=== PATIENT | male | born 1965 | race Caucasian/White ===

== ENCOUNTER 2019-11-05 13:45 | Inpatient (IN) | payer OTHER ==
--- NOTE | 2019-11-05 14:05 | PDOC ---
History of Present Illness - General Stated Complaint: CHEST PAIN/SOB Time Seen by Provider: 11/05/19 13:59 - History of Present Illness Initial Comments: 11/05/19 14:48 54 year old man with no reported history who presents with several days of worsening shortness of breath and chest tightness. He endorses some cough, but denies any fevers, nausea, sweating, abdominal pain. He has no other complaints. On triage sats on RA in mid 70s. He only came to the ER on the insistence of his . ROS GENERAL/CONSTITUTIONAL: No fever or chills. No weakness. HEAD, EYES, EARS, NOSE AND THROAT: No change in vision. No ear pain or discharge. No sore throat. CARDIOVASCULAR: No chest pain, + shortness of breath RESPIRATORY: No cough, wheezing, or hemoptysis. GASTROINTESTINAL: No nausea, vomiting, diarrhea or constipation. GENITOURINARY: No dysuria, frequency, or change in urination. MUSCULOSKELETAL: No joint or muscle swelling or pain. No neck or back pain. SKIN: No rash NEUROLOGIC: No headache, vertigo, loss of consciousness, or change in strength/sensation. ENDOCRINE: No increased thirst. No abnormal weight change HEMATOLOGIC/LYMPHATIC: No anemia, easy bleeding, or history of blood clots. ALLERGIC/IMMUNOLOGIC: No hives or skin allergy. PE GENERAL: Awake, alert, and fully oriented, in no acute distress HEAD: No signs of trauma, normocephalic, atraumatic EYES: EOMI, sclera anicteric, conjunctiva clear ENT: oropharynx clear without exudates. Moist mucosa NECK: Normal ROM, supple LUNGS: No distress, speaks full sentences, clear to auscultation bilaterally HEART: Regular rate and rhythm, normal S1 and S2, no murmurs, rubs or gallops, peripheral pulses normal and equal bilaterally. ABDOMEN: Soft, nontender, No guarding, no rebound. No masses EXTREMITIES : Normal inspection, Normal range of motion, no edema. No clubbing or cyanosis. NEUROLOGICAL: Cranial nerves II through XII grossly intact. Normal speech, normal gait, no focal sensorimotor deficits SKIN: Warm, Dry, normal turgor, no rashes or lesions noted Assessment and Plan 54 year old man with no reported history who presents with several days of worsening shortness of breath and chest tightness. Concerning for covid vs pna vs pe r.o acs covid order set EKG: sinus tachycardia at 118bpm, S1Q3T3 pattern, no ST segment dep[place] [address] lactic 4.5 trop 0.4 CTA Acute emboli are identified within the left and right pulmonary arteries as well as straddling the bifurcation of the main pulmonary artery. Emboli are also visualized within several upper and lower lobe lobar branches. There is dilatation of the right ventricle consistent with evidence of right heart strain. No pericardial effusion is noted. Small peripheral right upper lobe and right lower lobe opacities are noted laterally probably on the basis of e yamilka/infarction. No pleural effusion is visualized. There is no obvious acute osseous pathology. Verbal report provided to emergency department personnel. Impression: Acute bilateral central pulmonary embolism is noted with resultant right heart strain. Heparin bolus and drip given See attending discussion with IR, pt may recieve IR guided tPa Discussed case wit ICU resident Dr. Child, will come see pt ICU staff at bedside for evaluation, accept patient for ICU admission Dina Price, PGY2 Emergency Medicine Past History - Medical History Allergies/Adverse Reactions: Allergies Allergy/AdvReac Type Severity Reaction Status Date / Time No Known Allergies Allergy Verified 11/05/19 13:54 ED Treatment Course - LABORATORY CBC & Chemistry Diagram: 11/06/19 05:55 11/06/19 05:55 Discharge - Discharge Information Problems reviewed: Yes Clinical Impression/Diagnosis: Pulmonary embolism Qualifiers: Pulmonary embolism type: saddle Chronicity: acute Acute cor pulmonale presence: with acute cor pulmonale Qualified Code(s): I26.02 - Saddle embolus of pulmonary artery with acute cor pulmonale - Follow up/Referral - Patient Discharge Instructions - Post Discharge Activity
[2019-11-05 15:01] LABS: BASO % 0.3 % (0-2.0); EOS % 0.1 % (0-4.5); HEMOGLOBIN 14.7 GM/dL (11.7-16.9); LYMPH % 19.3 % (8-40); MCH 31.4 pg (25.7-33.7); MCHC 33.4 g/dl (32.0-35.9); MEAN CELL VOLUME 94.1 fl (80-96); MONO % 8.2 % (3.8-10.2); NEUT % 72.1 % (42.8-82.8); PLATELET COUNT 216 K/MM3 (134-434); RBC 4.67 M/mm3 (4.00-5.60); RDW 13.9 % (11.9-15.9); WHITE BLOOD COUNT 11.7 K/mm3 (4.0-10.0)
[2019-11-05 15:07] LABS: INR 1.28 (0.83-1.09); PROTHROMBIN TIME (PATIENT) 15.1 SEC (9.7-13.0)
[2019-11-05 15:09] LABS: ACTIVATED PTT 26.4 SECONDS (25.2-36.5)
[2019-11-05 15:20] LABS: ALBUMIN 3.8 g/dl (3.4-5.0); BILIRUBIN,DIRECT 0.4 mg/dL (0.0-0.2); BILIRUBIN,TOTAL 0.9 mg/dL (0.2-1); BLOOD UREA NITROGEN 24.4 mg/dL (7-18); CALCIUM 8.8 mg/dL (8.5-10.1); CREATININE 1.6 mg/dL (0.55-1.3); TOT PROT 8.5 g/dl (6.4-8.2)
--- NOTE | 2019-11-05 15:44 | PDOC ---
Attending Attestation - Resident Resident Name: Dina Price - ED Attending Attestation I have performed the following: I have examined & evaluated the patient, The case was reviewed & discussed with the resident, I agree w/resident's findings & plan, Exceptions are as noted - HPI HPI: 11/05/19 15:44 54 years old no past medical history presents to the ED with 3-day history of chest pressure and tightness and shortness of breath progressively worsening. No history of similar no travel no sick contacts Symptoms are moderate to severe persistent constant worsening over the last 3 days. 11/05/19 15:49 - Physicial Exam PE: 11/05/19 15:49 Vitals: Triage Vital signs reviewed General Appearance: No acute distress, well nourished well developed, Head: Atraumatic, Cardiac: Tachycardic Lungs: Clear to auscultation bilateral, good air movement bilaterally, Abdomen: Soft, non distended, normal bowel sounds, non tender to palpation \ Extremities: Full range of motion to all extremities, no cyanosis, clubbing, or edema Skin: Warm and dry, no rashes or lesions, no rash, no petechiae Psych: Normal mood, normal affect - Critical Care Time Total Critical Care Time: 45 Critical Care Statement: The care of this patient involved high complexity decision making to prevent further life threatening deterioration of the patient's condition and/or to evaluate & treat vital organ system(s) failure or risk of failure. - Medical Decision Making 11/05/19 15:44 54 years old no past medical history with 3-day history of chest pain shortness of breath Differential diagnosis includes COVID/pneumonia/non-STEMI/PE D-dimer 17,000 CTA ordered CTA demonstrates saddle PE however patient hemodynamically stable bedside ultrasound demonstrates right heart strain blood pressure and oxygen have improved Case discussed with interventional radiology as well as ICU will heparinize admit to ICU for further management Patient's creatinine 1.[address] with IV contrast Heart Score/ECG Review - ECG Impressions Comment:: 11/05/19 15:50 EKG performed at 1349 demonstrates sinus tachycardia [address] elevations no T wave inversions Interpreted by me. Discharge - Discharge Information Problems reviewed: Yes Clinical Impression/Diagnosis: Pulmonary embolism Qualifiers: Pulmonary embolism type: saddle Chronicity: acute Acute cor pulmonale presence: with acute cor pulmonale Qualified Code(s): I26.02 - Saddle embolus of pulmonary artery with acute cor pulmonale - Follow up/Referral - Patient Discharge Instructions - Post Discharge Activity
[2019-11-05] MEDS ORDERED: HEPARIN - 25,000 UNIT in SODIUM CHLORIDE 495 ML IV SCH (17:00)
[2019-11-05] MEDS ORDERED: HEPARIN NA (PORCINE) 5,000 UNITS/ML 1ML VIAL IVPUSH ONE (17:00)
[2019-11-05] MEDS ORDERED: HEPARIN NA (PORCINE) 5,000 UNITS/ML 1ML VIAL IVPUSH PRN ×5 (17:00→20:01)
[2019-11-05] MEDS ORDERED: HEPARIN INFUSION - 25,000 UNITS/500 ML INFUS.BAG IVPB ONE (17:14)
[2019-11-05] MEDS ORDERED: HEPARIN NA (PORCINE) 5,000 UNITS/ML 1ML VIAL ONE (17:14)
--- NOTE | 2019-11-05 18:23 | CONSULT ---
Consult Consult Specialty:: ICU Referred by:: ED - History of Present Illness Chief Complaint: SOB; submassive PE History of Present Illness: 54 y/o male with no reported PMH c/o 4 days of SOB and decreased appetite. He states this has never happened before. The symptoms occurred progressively. He denies PND and orhtopnea. He denies allergeies, h/o ashthma and COPD. The SOB is not exacerbated by activity. Denies GUTIERREZ, visions change, cough, CP, abdominal pain, joint pains, dyuria, hematuria, hematochezia, and bleeding. ROS NEG. - History Source History Provided By: Patient Limitations to Obtaining History: No Limitations - Past Medical History Cardio/Vascular: Yes: HTN - Alcohol/Substance Use Hx Alcohol Use: Yes (social ) History of Substance Use: reports: None - Smoking History Smoking history: Former smoker Have you smoked in the past 12 months: No - Social History Usual Living Arrangement: With Spouse ADL: Independent Place of : Other ([facility]) History of Recent Travel: No Home Medications - Allergies Allergies/Adverse Reactions: Allergies Allergy/AdvReac Type Severity Reaction Status Date / Time No Known Allergies Allergy Verified 11/05/19 13:54 Family Medical History Family History: Denies Other Family History: No family med hx. No fam h/o VTE or other blodd d/o. Review of Systems - Review of Systems Constitutional: reports: No Symptoms Eyes: reports: No Symptoms HENT: reports: No Symptoms Neck: reports: No Symptoms Cardiovascular: reports: Shortness of Breath Respiratory: reports: SOB Gastrointestinal: reports: No Symptoms Genitourinary: reports: No Symptoms Breasts: reports: No Symptoms Reported Musculoskeletal: reports: No Symptoms Integumentary: reports: No Symptoms Neurological: reports: No Symptoms Endocrine: reports: No Symptoms Hematology/Lymphatic: reports: No Symptoms Psychiatric: reports: No Symptoms Physical Exam Vital Signs: Vital Signs Temperature Pulse Rate 115 H 11/05/19 13:54 Respiratory Rate 11/05/19 13:54 Blood Pressure 119/81 11/05/19 13:54 O2 Sat by Pulse Oximetry (%) 85 L 11/05/19 15:42 Constitutional: Yes: Well Nourished, No Distress, Calm Eyes: Yes: WNL, Conjunctiva Clear, EOM Intact HENT: Yes: WNL, Atraumatic, Normocephalic Neck: Yes: WNL, Supple, Trachea Midline Cardiovascular: Yes: WNL, Regular Rate and Rhythm Respiratory: Yes: WNL, Regular, CTA Bilaterally, On Venti-Mask Gastrointestinal: Yes: WNL ...Rectal Exam: Yes: Deferred Breast(s): Yes: WNL Musculoskeletal: Yes: WNL Extremities: Yes: WNL Edema: No Peripheral Pulses WNL: Yes Integumentary: Yes: WNL Neurological: Yes: WNL ...Motor Strength: WNL Psychiatric: Yes: WNL Labs: CBC, BMP 11/05/19 14:26 11/05/19 14:26 Imaging - Results Chest X-ray: Report Reviewed Cat Scan: Report Reviewed (Submassive PE) EKG: Pending (s1q3t3) Assessment/Plan 54 y/o male with no reported PMH c/o SOB admitted for submassive PE. He is currently on PE protocol Heparin drip and is scheduled for IR guided thrombec jose david. # Neuro AOx3 No focal deficits # Pulm CT: Emboli in LEFT and RIGHT pulm artery, straddling bifurcation as well as upper and lower lobes branches WITH RIGHT heart strain Heparin protocol for PE # CVS Hemodynamically stable RRR EKG with s1q3t3 Heparin protocol for PE Unprovoked PE Scheduled for IR directed thrombectomy F/u protein C, protein S deficiency, Factor V Leiden # Renal Possible MIKE Cr 1.6 (1st time visit today) # FEN PO Cont. to monitor and replete as needed NPO after midnight # Ppx Currently receiving Hep protocol # Disposition Admit to ICU
[2019-11-05] MEDS: HEPARIN - 25,000 UNIT in SODIUM CHLORIDE 495 ML IV SCH (20:10)
[2019-11-05] MEDS: CHLORHEXIDINE GLUCONATE 4% CLEANSER FOR DECOLONIZATION TP SCH (21:12)
[2019-11-05] MEDS: MUPIROCIN 2% TOPICAL OINTMENT FOR DECOLONIZATION NS SCH (21:33)
[2019-11-05] MEDS ORDERED: CHLORHEXIDINE GLUCONATE 4% CLEANSER FOR DECOLONIZATION TP SCH (22:00)
[2019-11-05] MEDS ORDERED: MUPIROCIN 2% TOPICAL OINTMENT FOR DECOLONIZATION NS SCH (22:00)
[2019-11-06 06:19] LABS: BASO % 0.5 % (0-2.0); EOS % 0.7 % (0-4.5); HEMATOCRIT 39.3 % (35.4-49); HEMOGLOBIN 13.3 GM/dL (11.7-16.9); LYMPH % 31.3 % (8-40); MCH 31.5 pg (25.7-33.7); MCHC 33.8 g/dl (32.0-35.9); MEAN PLT VOLUME 8.8 fl (7.5-11.1); MONO % 9.4 % (3.8-10.2); NEUT % 58.1 % (42.8-82.8); PLATELET COUNT 145 K/MM3 (134-434); RBC 4.23 M/mm3 (4.00-5.60); RDW 13.8 % (11.9-15.9); WHITE BLOOD COUNT 7.6 K/mm3 (4.0-10.0)
[2019-11-06 06:49] LABS: ALBUMIN 3.4 g/dl (3.4-5.0); BILIRUBIN,TOTAL 0.7 mg/dL (0.2-1); BLOOD UREA NITROGEN 22.9 mg/dL (7-18); CALCIUM 8.4 mg/dL (8.5-10.1); CREATININE 1.2 mg/dL (0.55-1.3); MAGNESIUM 2.4 mg/dL (1.8-2.4); PHOSPHOROUS 4.3 mg/dL (2.5-4.9); TOT PROT 7.4 g/dl (6.4-8.2)
[2019-11-06] MEDS: HEPARIN - 25,000 UNIT in SODIUM CHLORIDE 495 ML IV SCH (09:28)
[2019-11-06] MEDS: MUPIROCIN 2% TOPICAL OINTMENT FOR DECOLONIZATION NS SCH ×2 (10:09→22:16)
--- NOTE | 2019-11-06 11:17 | EKG ---
Test Reason : Blood Pressure : / mmHG Vent. Rate : 118 BPM Atrial Rate : 118 BPM P-R Int : 156 ms QRS Dur : 088 ms QT Int : 342 ms P-R-T Axes : 074 065 033 degrees QTc Int : 479 ms SINUS TACHYCARDIA OTHERWISE NORMAL ECG NO PREVIOUS ECGS AVAILABLE Confirmed by MD EFREN, JULISSA ([id number]) on 11/06/2019 11:17:39 AM Referred By: Confirmed By:JULISSA SCHWARTZ MD
--- NOTE | 2019-11-06 12:27 | PN ---
Teaching Attending Note Name of Resident: Malcolm Platt ATTENDING PHYSICIAN STATEMENT I saw and evaluated the patient. I reviewed the resident's note and discussed the case with the resident. I agree with the resident's findings and plan as documented. SUBJECTIVE: Patient seen and examined in the ICU. On 100% NRBM. Denies CP or SOB. CT : extensive bilateral PE ? radiographic evidence of RH strain. VTE seems unprovoked. Low clinical suspicion of COVID19. Intake & Output 11/03/19 11/04/19 11/05/19 11/06/19 23:59 23:59 23:59 23:59 Intake Total 117 324 Output Total 300 Balance 117 24 Weight 238 lb 14.4 oz 238 lb 14.4 oz Last Vital Signs Temp Pulse Resp BP Pulse Ox 98.7 F 83 20 129/89 95 11/06/19 10:00 11/06/19 10:00 11/06/19 10:00 11/06/19 10:00 11/06/19 08:49 Active Medications Chlorhexidine Gluconate (Hibiclens For Decolonization -) 1 applic TP HS CHERI Last Admin: 11/05/19 21:12 Dose: 1 applic Documented by: Heparin Sodium (Porcine) (Heparin -) 4,300 unit 40 unit/kg (4300 unit) IVPUSH PRN PRN PRN Reason: For aPTT 35 to 45 seconds Heparin Sodium (Porcine) (Heparin -) 8,700 unit 80 unit/kg (8700 unit) IVPUSH PRN PRN PRN Reason: aPTT <35 seconds Heparin Sodium (Porcine) 25, (000 unit/ Sodium Chloride) 500 mls @ 39.027 mls/hr IV TITR CHERI; Protocol Last Titration: 11/06/19 10:09 Dose: 15 unit/kg/hr, 32.523 mls/hr Documented by: Mupirocin (Bactroban Ointment (For Decolonization) -) 1 applic NS BID CHERI Stop: 11/10/19 21:59 Last Admin: 11/06/19 10:09 Dose: 1 applic Documented by: Constitutional: Yes: Well Nourished, No Distress Eyes: Yes: WNL, Conjunctiva Clear, EOM Intact HENT: Yes: WNL, Atraumatic, Normocephalic Neck: Yes: WNL, Supple, Trachea Midline Cardiovascular: Yes: WNL, Regular Rate and Rhythm Respiratory: Yes: Mildly tachypneic at rest, diminished throughout Gastrointestinal: Yes: WNL ...Rectal Exam: Yes: Deferred Breast(s): Yes: WNL Musculoskeletal: Yes: WNL Extremities: Yes: WNL Edema: No Peripheral Pulses WNL: Yes Integumentary: Yes: WNL Neurological: Yes: WNL ...Motor Strength: WNL Psychiatric: Yes: WNL Labs: Laboratory Results - last 24 hr 11/05/19 11/05/19 11/05/19 14:26 14:26 14:26 WBC 11.7 H RBC 4.67 Hgb 14.7 Hct 44.0 MCV 94.1 MCH 31.4 MCHC 33.4 RDW 13.9 Plt Count 216 MPV 9.0 Absolute Neuts (auto) 8.4 H Neutrophils % 72.1 Lymphocytes % 19.3 Monocytes % 8.2 Eosinophils % 0.1 Basophils % 0.3 Nucleated RBC % 0 PT with INR 15.10 H INR 1.28 H PTT (Actin FS) 26.4 D-Dimer 02184 H Sodium Potassium Chloride Carbon Dioxide Anion Gap BUN Creatinine Est GFR (CKD-EPI)AfAm Est GFR (CKD-EPI)NonAf Random Glucose Lactic Acid Calcium Phosphorus Magnesium Ferritin Total Bilirubin Direct Bilirubin AST ALT Alkaline Phosphatase LD Total Creatine Kinase Creatine Kinase Index CK-MB (CK-2) Troponin I B-Natriuretic Peptide Total Protein Albumin Stool Occult Blood 11/05/19 11/05/19 11/05/19 14:26 14:26 14:26 WBC RBC Hgb Hct MCV MCH MCHC RDW Plt Count MPV Absolute Neuts (auto) Neutrophils % Lymphocytes % Monocytes % Eosinophils % Basophils % Nucleated RBC % PT with INR INR PTT (Actin FS) D-Dimer Sodium 136 Potassium 4.0 Chloride 101 Carbon Dioxide 18 L Anion Gap 17 H BUN 24.4 H Creatinine 1.6 H Est GFR (CKD-EPI)AfAm 55.39 Est GFR (CKD-EPI)NonAf 47.79 Random Glucose 164 H Lactic Acid 4.5 H* Calcium 8.8 Phosphorus Magnesium Ferritin 238.0 Total Bilirubin 0.9 Direct Bilirubin 0.4 H AST 23 ALT 32 Alkaline Phosphatase 45 LD Total 375 H Creatine Kinase 216 Creatine Kinase Index 1.1 CK-MB (CK-2) 2.4 Troponin I 0.71 H* B-Natriuretic Peptide 5565.3 H Total Protein 8.5 H Albumin 3.8 Stool Occult Blood 11/05/19 11/05/19 11/05/19 17:11 18:00 18:00 WBC RBC Hgb Hct MCV MCH MCHC RDW Plt Count MPV Absolute Neuts (auto) Neutrophils % Lymphocytes % Monocytes % Eosinophils % Basophils % Nucleated RBC % PT with INR INR PTT (Actin FS) D-Dimer Sodium Potassium Chloride Carbon Dioxide Anion Gap BUN Creatinine Est GFR (CKD-EPI)AfAm Est GFR (CKD-EPI)NonAf Random Glucose Lactic Acid 1.9 Calcium Phosphorus Magnesium Ferritin Total Bilirubin Direct Bilirubin AST ALT Alkaline Phosphatase LD Total Creatine Kinase Creatine Kinase Index CK-MB (CK-2) Troponin I 0.68 H* B-Natriuretic Peptide Total Protein Albumin Stool Occult Blood Negative 11/05/19 11/05/19 11/05/19 20:50 20:50 20:50 WBC RBC Hgb Hct MCV MCH MCHC RDW Plt Count MPV Absolute Neuts (auto) Neutrophils % Lymphocytes % Monocytes % Eosinophils % Basophils % Nucleated RBC % PT with INR INR PTT (Actin FS) 99.9 H D-Dimer Sodium Potassium Chloride Carbon Dioxide Anion Gap BUN Creatinine Est GFR (CKD-EPI)AfAm Est GFR (CKD-EPI)NonAf Random Glucose Lactic Acid 1.4 Calcium Phosphorus Magnesium Ferritin Total Bilirubin Direct Bilirubin AST ALT Alkaline Phosphatase LD Total Creatine Kinase 268 Creatine Kinase Index 0.6 CK-MB (CK-2) 1.75 Troponin I 0.55 H B-Natriuretic Peptide Total Protein Albumin Stool Occult Blood 11/06/19 11/06/19 11/06/19 05:55 05:55 05:55 WBC 7.6 RBC 4.23 Hgb 13.3 Hct 39.3 MCV 93.0 MCH 31.5 MCHC 33.8 RDW 13.8 Plt Count 145 D MPV 8.8 Absolute Neuts (auto) 4.4 Neutrophils % 58.1 Lymphocytes % 31.3 D Monocytes % 9.4 Eosinophils % 0.7 D Basophils % 0.5 Nucleated RBC % 0 PT with INR INR PTT (Actin FS) D-Dimer Sodium 138 Potassium 4.0 Chloride 104 Carbon Dioxide 24 Anion Gap 10 BUN 22.9 H Creatinine 1.2 Est GFR (CKD-EPI)AfAm 78.43 Est GFR (CKD-EPI)NonAf 67.67 Random Glucose 118 H Lactic Acid Calcium 8.4 L Phosphorus 4.3 Magnesium 2.4 Ferritin Total Bilirubin 0.7 Direct Bilirubin AST 26 ALT 32 Alkaline Phosphatase 40 L LD Total Creatine Kinase 251 Creatine Kinase Index 0.7 CK-MB (CK-2) 1.9 Troponin I 0.42 H B-Natriuretic Peptide Total Protein 7.4 Albumin 3.4 Stool Occult Blood 11/06/19 11/06/19 05:55 08:40 WBC RBC Hgb Hct MCV MCH MCHC RDW Plt Count MPV Absolute Neuts (auto) Neutrophils % Lymphocytes % Monocytes % Eosinophils % Basophils % Nucleated RBC % PT with INR INR PTT (Actin FS) 50.4 H D-Dimer Sodium Potassium Chloride Carbon Dioxide Anion Gap BUN Creatinine Est GFR (CKD-EPI)AfAm Est GFR (CKD-EPI)NonAf Random Glucose Lactic Acid Calcium Phosphorus Magnesium Ferritin Total Bilirubin Direct Bilirubin AST ALT Alkaline Phosphatase LD Total Creatine Kinase Creatine Kinase Index CK-MB (CK-2) Troponin I 0.42 H B-Natriuretic Peptide Total Protein Albumin Stool Occult Blood Imaging - Results Chest X-ray: Report Reviewed Cat Scan: Report Reviewed (Submassive PE) EKG: Pending (s1q3t3) Assessment/Plan Extensive Bilateral PE : seems unprovoked R/O DVT Low clinical suspicion of COVID19 infection ECHO Supplemental O2 as needed Will need Thrombosis workup Will need age appropriate malignancy screening Heparin per protocol Scheduled for IR directed thrombectomy & tPA infusion Continue ICU monitoring Dr Sebastian
--- NOTE | 2019-11-06 14:14 | PN ---
Physical Exam: SUBJECTIVE: Patient seen and examined. Afebrile, asymptomatic. On heparin drip. On Venti mask. OBB. NPO. OBJECTIVE: Vital Signs Period Temp Pulse Resp BP Sys/Dowd Pulse Ox Last 24 Hr 98 F-98.7 F 78-115 16-24 111-133/81-101 85-97 GENERAL: The patient is awake, alert, and fully oriented, in no acute distress. On venti mask EYES: PERRL, extraocular movements intact, sclera anicteric, conjunctiva clear. No ptosis. ENT: moist mucous membranes. NECK: Trachea midline, full range of motion, supple. LUNGS: diminished breath b/l HEART: Regular rate and rhythm, S1, S2 without murmur, rub or gallop. ABDOMEN: Soft, nontender, nondistended, normoactive bowel sounds, no guarding EXTREMITIES: 2+ pulses, warm, well-perfused, no edema. PSYCH: Normal mood, normal affect. SKIN: Warm, dry, normal turgor, no rashes or lesions noted Laboratory Results - last 24 hr 11/05/19 11/05/19 11/05/19 14:26 14:26 14:26 WBC 11.7 H RBC 4.67 Hgb 14.7 Hct 44.0 MCV 94.1 MCH 31.4 MCHC 33.4 RDW 13.9 Plt Count 216 MPV 9.0 Absolute Neuts (auto) 8.4 H Neutrophils % 72.1 Lymphocytes % 19.3 Monocytes % 8.2 Eosinophils % 0.1 Basophils % 0.3 Nucleated RBC % 0 PT with INR 15.10 H INR 1.28 H PTT (Actin FS) 26.4 D-Dimer 75648 H Sodium Potassium Chloride Carbon Dioxide Anion Gap BUN Creatinine Est GFR (CKD-EPI)AfAm Est GFR (CKD-EPI)NonAf Random Glucose Lactic Acid Calcium Phosphorus Magnesium Ferritin Total Bilirubin Direct Bilirubin AST ALT Alkaline Phosphatase LD Total Creatine Kinase Creatine Kinase Index CK-MB (CK-2) Troponin I B-Natriuretic Peptide Total Protein Albumin Stool Occult Blood 11/05/19 11/05/19 11/05/19 14:26 14:26 14:26 WBC RBC Hgb Hct MCV MCH MCHC RDW Plt Count MPV Absolute Neuts (auto) Neutrophils % Lymphocytes % Monocytes % Eosinophils % Basophils % Nucleated RBC % PT with INR INR PTT (Actin FS) D-Dimer Sodium 136 Potassium 4.0 Chloride 101 Carbon Dioxide 18 L Anion Gap 17 H BUN 24.4 H Creatinine 1.6 H Est GFR (CKD-EPI)AfAm 55.39 Est GFR (CKD-EPI)NonAf 47.79 Random Glucose 164 H Lactic Acid 4.5 H* Calcium 8.8 Phosphorus Magnesium Ferritin 238.0 Total Bilirubin 0.9 Direct Bilirubin 0.4 H AST 23 ALT 32 Alkaline Phosphatase 45 LD Total 375 H Creatine Kinase 216 Creatine Kinase Index 1.1 CK-MB (CK-2) 2.4 Troponin I 0.71 H* B-Natriuretic Peptide 5565.3 H Total Protein 8.5 H Albumin 3.8 Stool Occult Blood 11/05/19 11/05/19 11/05/19 17:11 18:00 18:00 WBC RBC Hgb Hct MCV MCH MCHC RDW Plt Count MPV Absolute Neuts (auto) Neutrophils % Lymphocytes % Monocytes % Eosinophils % Basophils % Nucleated RBC % PT with INR INR PTT (Actin FS) D-Dimer Sodium Potassium Chloride Carbon Dioxide Anion Gap BUN Creatinine Est GFR (CKD-EPI)AfAm Est GFR (CKD-EPI)NonAf Random Glucose Lactic Acid 1.9 Calcium Phosphorus Magnesium Ferritin Total Bilirubin Direct Bilirubin AST ALT Alkaline Phosphatase LD Total Creatine Kinase Creatine Kinase Index CK-MB (CK-2) Troponin I 0.68 H* B-Natriuretic Peptide Total Protein Albumin Stool Occult Blood Negative 11/05/19 11/05/19 11/05/19 20:50 20:50 20:50 WBC RBC Hgb Hct MCV MCH MCHC RDW Plt Count MPV Absolute Neuts (auto) Neutrophils % Lymphocytes % Monocytes % Eosinophils % Basophils % Nucleated RBC % PT with INR INR PTT (Actin FS) 99.9 H D-Dimer Sodium Potassium Chloride Carbon Dioxide Anion Gap BUN Creatinine Est GFR (CKD-EPI)AfAm Est GFR (CKD-EPI)NonAf Random Glucose Lactic Acid 1.4 Calcium Phosphorus Magnesium Ferritin Total Bilirubin Direct Bilirubin AST ALT Alkaline Phosphatase LD Total Creatine Kinase 268 Creatine Kinase Index 0.6 CK-MB (CK-2) 1.75 Troponin I 0.55 H B-Natriuretic Peptide Total Protein Albumin Stool Occult Blood 11/06/19 11/06/19 11/06/19 05:55 05:55 05:55 WBC 7.6 RBC 4.23 Hgb 13.3 Hct 39.3 MCV 93.0 MCH 31.5 MCHC 33.8 RDW 13.8 Plt Count 145 D MPV 8.8 Absolute Neuts (auto) 4.4 Neutrophils % 58.1 Lymphocytes % 31.3 D Monocytes % 9.4 Eosinophils % 0.7 D Basophils % 0.5 Nucleated RBC % 0 PT with INR INR PTT (Actin FS) D-Dimer Sodium 138 Potassium 4.0 Chloride 104 Carbon Dioxide 24 Anion Gap 10 BUN 22.9 H Creatinine 1.2 Est GFR (CKD-EPI)AfAm 78.43 Est GFR (CKD-EPI)NonAf 67.67 Random Glucose 118 H Lactic Acid Calcium 8.4 L Phosphorus 4.3 Magnesium 2.4 Ferritin Total Bilirubin 0.7 Direct Bilirubin AST 26 ALT 32 Alkaline Phosphatase 40 L LD Total Creatine Kinase 251 Creatine Kinase Index 0.7 CK-MB (CK-2) 1.9 Troponin I 0.42 H B-Natriuretic Peptide Total Protein 7.4 Albumin 3.4 Stool Occult Blood Active Medications Generic Name Dose Route Start Last Admin Trade Name Freq PRN Reason Stop Dose Admin Chlorhexidine Gluconate 1 applic 11/05/19 22:00 11/05/19 21:12 Hibiclens For Decolonization - TP 1 applic HS CHERI Administration Heparin Sodium (Porcine) 4,300 unit 11/05/19 20:01 Heparin - 40 unit/kg (4300 unit) IVPUSH PRN PRN For aPTT 35 to 45 seconds Heparin Sodium (Porcine) 8,700 unit 11/05/19 20:01 Heparin - 80 unit/kg (8700 unit) IVPUSH PRN PRN aPTT <35 seconds Heparin Sodium (Porcine) 25, 500 mls @ 39.027 mls/hr 11/05/19 20:01 11/06/19 10:09 000 unit/ Sodium Chloride IV 15 unit/kg/hr TITR CHERI 32.523 mls/hr Titration Protocol 18 UNIT/KG/HR Mupirocin 1 applic 11/05/19 22:00 11/06/19 10:09 Bactroban Ointment (For Decolonization) - NS 11/10/19 21:59 1 applic BID CHERI Administration ASSESSMENT/PLAN: 54 y/o male with no reported PMH c/o SOB admitted to ICU for Acute hypoxic resp failure 2/2 to submassive PE #Neuro AOx3 No focal deficits #Pulm CT: Emboli in LEFT and RIGHT pulm artery, straddling bifurcation as well as upper and lower lobes branches WITH RIGHT heart strain Pt started on Heparin as per protocol ECHO ordered for RV strain and dysfxn assessment Discussed with Dr. Joseph, IR plan to perform tPA thrombectomy today once ECHO is done #CVS Hemodynamically stable EKG with s1q3t3 Heparin protocol for PE Monitor PTT q6, target PTT Unprovoked PE F/u protein C, protein S deficiency, Factor V Leiden pending trops trending down #Renal Possible MIKE- improved Cr 1.2 #ID COVID pending BCx pending #GI stable NPO #Vascular US- b/l DVT of popliteal vein unprovoked #FEN Cont. to monitor and replete as needed NPO # Ppx Currently receiving Hep protocol #Disposition: pt s/p thrombectomy, currently receiving alteplase 24hrs, will hold heparin until completion of Alteplase. Literature shows increased risk of bleeding with tPA+AC as per PEITHO trial. Visit type - Emergency Visit Emergency Visit: Yes ED Registration Date: 11/05/19 Care time: The patient presented to the Emergency Department on the above date and was hospitalized for further evaluation of their emergent condition. - New Patient This patient is new to me today: Yes Date on this admission: 11/19/19 - Critical Care Critical Care patient: No - Discharge Referral Referred to [facility] Med [facility].C[facility] No ATTENDING PHYSICIAN STATEMENT I saw and evaluated the patient. I reviewed the resident's note and discussed the case with the resident. I agree with the resident's findings and plan as documented. SUBJECTIVE: OBJECTIVE: ASSESSMENT AND PLAN:
--- NOTE | 2019-11-06 14:38 | ECHO ---
Name: BEV RECINOS Exam:Adult Echocardiogram Study Date: 11/06/2019 01:52 PM Age: 54 yrs Reason For Study: RV DYSFUNCTION Height: 74 in Weight: 238 lb BSA: 2.3 m2 MMode/2D Measurements & Calculations IVSd: 1.3 cm Ao root diam: 3.0 cm LVIDd: 3.9 cm LA dimension: 3.3 cm LVIDs: 2.2 cm LVPWd: 0.88 cm EDV(Teich): 65.4 ml LVOT diam: 2.0 cm ESV(Teich): 16.1 ml LAV (MOD-bp): 26.7 ml Doppler Measurements & Calculations MV E max elkin: 42.7 cm/sec Ao V2 max: 119.4 cm/sec MV A max elkin: 57.2 cm/sec Ao max P.7 mmHg MV E/A: 0.75 MV dec time: 0.20 sec KIP(V,D): 2.5 cm2 LV V1 max P.9 mmHg MR max elkin: 354.0 cm/sec LV V1 max: 99.0 cm/sec MR max P.1 mmHg TR max elkin: 301.3 cm/sec PA V2 max: 67.9 cm/sec TR max P.4 mmHg PA max P.8 mmHg Med Peak E' Elkin: 7.0 cm/sec PI Vmax: 126.2 cm/sec Med E/e': 6.1 Lat Peak E' Elkin: 8.1 cm/sec Lat E/e': 5.3 Procedure A complete two-dimensional transthoracic echocardiogram was performed (2D, M-mode, Doppler and color flow Doppler). Left Ventricle The left ventricle is normal in size. There is mild concentric left ventricular hypertrophy. The left ventricular ejection fraction is normal. Ejection Fraction = 65%. E/A reversal consistent with but no t diagnostic of poor LV compliance. The left ventricular wall motion is normal. Right Ventricle The right ventricle is moderately dilated. The right ventricular systolic function is moderately redu dimas. Atria Normal left and right atrial size and function. Mitral Valve The mitral valve is normal in structure and function. There is trace mitral regurgitation. Tricuspid Valve The tricuspid valve is normal in structure and function. There is mild tricuspid regurgitation. Right ventricular systolic pressure is elevated at 41 mmhg. Assuming the RA pressure is 5 mmHg. Aortic Valve The aortic valve is normal in structure and function. Trace aortic regurgitation. Pulmonic Valve The pulmonic valve is not well visualized. Trace pulmonic valvular regurgitation. Great Vessels The aortic root is normal size. Pericardium/Pleura There is no pericardial effusion. There is no pleural effusion. Interpretation Summary The left ventricle is normal in size. There is mild concentric left ventricular hypertrophy. Ejection Fraction = 65%. The right ventricle is moderately dilated. The right ventricular systolic function is moderately reduced. Normal left and right atrial size and function. There is trace mitral regurgitation. There is mild tricuspid regurgitation. Right ventricular systolic pressure is elevated at 41 mmhg. Assuming the RA pressure is 5 mmHg Trace aortic regurgitation. Trace pulmonic valvular regurgitation. MD Chaz Johnson 11/06/2019 02:38 PM
[2019-11-06] MEDS: HEPARIN NA (PORCINE) 5,000 UNITS/ML 1ML VIAL IVPUSH PRN (17:00)
[2019-11-06] MEDS ORDERED: ALTEPLASE (CATHFLO) 25 MG in SODIUM CHLORIDE 250 ML IA ONE (18:00)
[2019-11-06] MEDS: CHLORHEXIDINE GLUCONATE 4% CLEANSER FOR DECOLONIZATION TP SCH (22:16)
[2019-11-07 06:29] LABS: HEMATOCRIT 40.1 % (35.4-49); HEMOGLOBIN 13.3 GM/dL (11.7-16.9); MCH 30.9 pg (25.7-33.7); MCHC 33.1 g/dl (32.0-35.9); MEAN CELL VOLUME 93.3 fl (80-96); MEAN PLT VOLUME 9.2 fl (7.5-11.1); PLATELET COUNT 156 K/MM3 (134-434); RDW 13.6 % (11.9-15.9); WHITE BLOOD COUNT 7.2 K/mm3 (4.0-10.0)
[2019-11-07 07:04] LABS: ALBUMIN 3.3 g/dl (3.4-5.0); BILIRUBIN,TOTAL 1.1 mg/dL (0.2-1); BLOOD UREA NITROGEN 18.6 mg/dL (7-18); CALCIUM 8.5 mg/dL (8.5-10.1); CREATININE 1.1 mg/dL (0.55-1.3); MAGNESIUM 2.4 mg/dL (1.8-2.4); PHOSPHOROUS 4.6 mg/dL (2.5-4.9); POTASSIUM 4.6 mmol/L (3.5-5.1); TOT PROT 7.4 g/dl (6.4-8.2)
[2019-11-07] MEDS: MUPIROCIN 2% TOPICAL OINTMENT FOR DECOLONIZATION NS SCH ×2 (10:45→22:20)
[2019-11-07] MEDS ORDERED: ALTEPLASE 50MG 50 MG/50 ML VIAL IVPB ONE (11:17)
[2019-11-07] MEDS: HEPARIN - 25,000 UNIT in SODIUM CHLORIDE 495 ML IV SCH (11:28)
[2019-11-07] MEDS ORDERED: ALTEPLASE (CATHFLO) 15 MG in SODIUM CHLORIDE 150 ML CVP ONE (11:30)
--- NOTE | 2019-11-07 11:31 | PN ---
Teaching Attending Note Name of Resident: Lucita Vaughn ATTENDING PHYSICIAN STATEMENT I saw and evaluated the patient. I reviewed the resident's note and discussed the case with the resident. I agree with the resident's findings and plan as documented. SUBJECTIVE: Patient seen and examined in the ICU. Remains on 100% NRBM. Less CP or SOB. S/P Mechanical thrombectomy and tPA infusion (+) Bilateral DVT Intake & Output 11/04/19 11/05/19 11/06/19 11/07/19 23:59 23:59 23:59 23:59 Intake Total 117 685.8 501 Output Total 1350 200 Balance 117 -664.2 301 Weight 238 lb 14.4 oz 238 lb 14.4 oz 239 lb 8 oz Last Vital Signs Temp Pulse Resp BP Pulse Ox 98.5 F 75 22 H 116/85 97 11/07/19 05:00 11/07/19 08:00 11/07/19 08:00 11/07/19 08:00 11/07/19 08:23 Active Medications Chlorhexidine Gluconate (Hibiclens For Decolonization -) 1 applic TP HS CHERI Last Admin: 11/06/19 22:16 Dose: 1 applic Documented by: Heparin Sodium (Porcine) (Heparin -) 4,300 unit 40 unit/kg (4300 unit) IVPUSH PRN PRN PRN Reason: For aPTT 35 to 45 seconds Last Admin: 11/06/19 17:00 Dose: 4,300 unit Documented by: Heparin Sodium (Porcine) (Heparin -) 8,700 unit 80 unit/kg (8700 unit) IVPUSH PRN PRN PRN Reason: aPTT <35 seconds Heparin Sodium (Porcine) 25, (000 unit/ Sodium Chloride) 500 mls @ 39.027 mls/hr IV TITR CHERI; Protocol Last Admin: 11/07/19 11:28 Dose: 17 unit/kg/hr, 36.859 mls/hr Documented by: Alteplase, Recombinant 25 mg/ (Sodium Chloride) 250 mls @ 10 mls/hr IA ONCE ONE Stop: 11/07/19 18:59 Last Admin: 11/06/19 19:23 Dose: 10 mls/hr Documented by: Alteplase, Recombinant 15 mg/ (Sodium Chloride) 150 mls @ 12.5 mls/hr CVP ONCE ONE Stop: 11/07/19 23:29 Mupirocin (Bactroban Ointment (For Decolonization) -) 1 applic NS BID CHERI Stop: 11/10/19 21:59 Last Admin: 11/07/19 10:45 Dose: 1 applic Documented by: Constitutional: Yes: Well Nourished, Mildly tachypneic at rest Eyes: Yes: WNL, Conjunctiva Clear, EOM Intact HENT: Yes: WNL, Atraumatic, Normocephalic Neck: Yes: WNL, Supple, Trachea Midline Cardiovascular: Yes: WNL, Regular Rate and Rhythm Respiratory: Yes: Mildly tachypneic at rest, diminished throughout Gastrointestinal: Yes: WNL ...Rectal Exam: Yes: Deferred Breast(s): Yes: WNL Musculoskeletal: Yes: WNL Extremities: Yes: WNL Edema: No Peripheral Pulses WNL: Yes Integumentary: Yes: WNL Neurological: Yes: WNL ...Motor Strength: WNL Psychiatric: Yes: WNL Labs: Laboratory Results - last 24 hr 11/05/19 11/06/19 11/06/19 14:20 16:10 22:00 WBC RBC Hgb Hct MCV MCH MCHC RDW Plt Count MPV PTT (Actin FS) 43.9 H 51.5 H Sodium Potassium Chloride Carbon Dioxide Anion Gap BUN Creatinine Est GFR (CKD-EPI)AfAm Est GFR (CKD-EPI)NonAf Random Glucose Calcium Phosphorus Magnesium Total Bilirubin AST ALT Alkaline Phosphatase Total Protein Albumin COVID-19 (GARY) Not detected 11/07/19 11/07/19 11/07/19 05:55 05:55 05:55 WBC 7.2 RBC 4.30 Hgb 13.3 Hct 40.1 MCV 93.3 MCH 30.9 MCHC 33.1 RDW 13.6 Plt Count 156 MPV 9.2 PTT (Actin FS) 27.2 Sodium 135 L Potassium 4.6 Chloride 100 Carbon Dioxide 28 Anion Gap 6 L BUN 18.6 H Creatinine 1.1 Est GFR (CKD-EPI)AfAm 87.13 Est GFR (CKD-EPI)NonAf 75.17 Random Glucose 97 Calcium 8.5 Phosphorus 4.6 Magnesium 2.4 Total Bilirubin 1.1 H AST 28 ALT 33 Alkaline Phosphatase 41 L Total Protein 7.4 Albumin 3.3 L COVID-19 (GARY) Imaging - Results Chest X-ray: Report Reviewed Cat Scan: Report Reviewed (Submassive PE) EKG: Pending (s1q3t3) Assessment/Plan Extensive Bilateral PE : seems unprovoked R/O DVT Low clinical suspicion of COVID19 infection tPA and IV heparin drip per protocol Supplemental O2 as needed Will need Thrombosis workup Will need age appropriate malignancy screening Heparin per protocol Continue ICU monitoring Dr Sebastian
--- NOTE | 2019-11-07 12:12 | CON.HO ---
Consult Consult Specialty:: HemOnc - History of Present Illness History of Present Illness: Hisoty obtained in [place]. 54 y/o male with no reported PMH c/o 4 days of SOB and decreased appetite. He began to be SOB on October 31 adn ti gradully got worse. He started to wake up SOB. He started coughing last witner, bringing up white phlegm. It would take him about 5 min to get it all out, and coufhing would stop. he also ahd a gradually decresing exercise tolerance. He stopped smoking 15 years ago and dringks alcohol only occasionally. NO FH of thrombosis, [place], stroke. His activity level had not recently changed. He came in and wsa found to have PE. CT: Emboli in LEFT and RIGHT pulm artery, straddling bifurcation as well as upper and lower lobes branches WITH RIGHT heart strain. He was out on the Heparin protocol for PE and is feeling better. Cr was 1.6 on admission but down to 1.1 today. Doppler shows bilateral popliteal DVT. CT with bilateral PE, and thrombectomy was performed. - History Source History Provided By: Patient - Past Medical History Cardio/Vascular: Yes: HTN - Alcohol/Substance Use Hx Alcohol Use: Yes (social ) History of Substance Use: reports: None - Smoking History Smoking history: Former smoker Have you smoked in the past 12 months: No - Social History Usual Living Arrangement: With Spouse ADL: Independent History of Recent Travel: No Home Medications - Allergies Allergies/Adverse Reactions: Allergies Allergy/AdvReac Type Severity Reaction Status Date / Time No Known Allergies Allergy Verified 11/05/19 13:54 Physical Exam Vital Signs: Vital Signs Temperature 98 F 11/07/19 10:00 Pulse Rate 83 11/07/19 12:00 Respiratory Rate 27 H 11/07/19 12:00 Blood Pressure 124/79 11/07/19 12:00 O2 Sat by Pulse Oximetry (%) 97 11/07/19 08:23 Constitutional: Yes: Well Nourished (Denies weight loss) Eyes: Yes: WNL HENT: Yes: WNL Cardiovascular: Yes: Regular Rate and Rhythm Respiratory: Yes: On Venti-Mask Gastrointestinal: Yes: Normal Bowel Sounds Extremities: Yes: WNL Labs: CBC, BMP 11/07/19 05:55 11/07/19 05:55 Assessment/Plan 1. PE. Agree with Heparin and switch to an oral AC per protocol 2. History of chronic cough. Pumonary consultation and followup, may be due to something innocuous like GERD, but in the context of PE, need to rule out a malignancy. May need to rescan when changes of PE resolve. 3. DVT and PE - warrants a genetic workup, since still a young patient at 54, a lthough no FH. We will perform once off heparin. Malignancy GUZMAN - in addition to 2, recommend CT of abdomen and pelvis before discharge.
[2019-11-07] MEDS ORDERED: PT OWN MED DRAWER 7, Y5N ONE (13:32)
[2019-11-07] MEDS ORDERED: ALTEPLASE 50MG 25 MG in SODIUM CHLORIDE 250 ML IVPB ONE (16:15)
[2019-11-07] MEDS ORDERED: SODIUM CHLORIDE NASAL SPRAY 44 ML BOTTLE NS PRN (19:03)
--- NOTE | 2019-11-07 20:33 | PN ---
Physical Exam: SUBJECTIVE: Patient seen and examined Was seen this morning, pleasant and interactive. Was coughing and complained of mild pain at neck catheter site and abdominal pain when he coughs. Otherwise feels his breathing is much better. OBJECTIVE: Vital Signs Period Temp Pulse Resp BP Sys/Dowd Pulse Ox Last 24 Hr 96.9 F-98.6 F 72-95 17-27 112-152/69-101 92-99 GENERAL: The patient is awake, alert, and fully oriented, in no acute distress. HEAD: Normal with no signs of trauma. EYES: PERRL, extraocular movements intact, conjunctiva clear. LUNGS: Breath sounds equal, clear to auscultation bilaterally, no wheezes, no crackles, no accessory muscle use. HEART: Regular rate and rhythm, S1, S2 without murmur, rub or gallop. ABDOMEN: mildly distended and rigid (baseline for patient) EXTREMITIES: warm, well-perfused, no edema. NEUROLOGICAL: Cranial nerves II through XII grossly intact. Normal speech, gait not observed. PSYCH: Normal mood, normal affect. SKIN: Warm, normal turgor, no rashes or lesions noted Laboratory Results - last 24 hr 11/06/19 11/07/19 11/07/19 22:00 05:55 05:55 WBC 7.2 RBC 4.30 Hgb 13.3 Hct 40.1 MCV 93.3 MCH 30.9 MCHC 33.1 RDW 13.6 Plt Count 156 MPV 9.2 PTT (Actin FS) 51.5 H 27.2 Sodium Potassium Chloride Carbon Dioxide Anion Gap BUN Creatinine Est GFR (CKD-EPI)AfAm Est GFR (CKD-EPI)NonAf Random Glucose Calcium Phosphorus Magnesium Total Bilirubin AST ALT Alkaline Phosphatase Total Protein Albumin 11/07/19 11/07/19 05:55 18:25 WBC RBC Hgb Hct MCV MCH MCHC RDW Plt Count MPV PTT (Actin FS) 56.4 H Sodium 135 L Potassium 4.6 Chloride 100 Carbon Dioxide 28 Anion Gap 6 L BUN 18.6 H Creatinine 1.1 Est GFR (CKD-EPI)AfAm 87.13 Est GFR (CKD-EPI)NonAf 75.17 Random Glucose 97 Calcium 8.5 Phosphorus 4.6 Magnesium 2.4 Total Bilirubin 1.1 H AST 28 ALT 33 Alkaline Phosphatase 41 L Total Protein 7.4 Albumin 3.3 L Active Medications Generic Name Dose Route Start Last Admin Trade Name Freq PRN Reason Stop Dose Admin Chlorhexidine Gluconate 1 applic 11/05/19 22:00 11/06/19 22:16 Hibiclens For Decolonization - TP 1 applic HS CHERI Administration Heparin Sodium (Porcine) 4,300 unit 11/05/19 20:01 11/06/19 17:00 Heparin - 40 unit/kg (4300 unit) 4,300 unit IVPUSH Administration PRN PRN For aPTT 35 to 45 seconds Heparin Sodium (Porcine) 8,700 unit 11/05/19 20:01 Heparin - 80 unit/kg (8700 unit) IVPUSH PRN PRN aPTT <35 seconds Heparin Sodium (Porcine) 25, 500 mls @ 39.027 mls/hr 11/05/19 20:01 11/07/19 11:28 000 unit/ Sodium Chloride IV 17 unit/kg/hr TITR CHERI 36.859 mls/hr Administration Protocol 18 UNIT/KG/HR Alteplase, Recombinant 15 mg/ 150 mls @ 12.5 mls/hr 11/07/19 11:30 11/07/19 14:17 Sodium Chloride CVP 11/07/19 23:29 12.5 mls/hr ONCE ONE Administration Alteplase, Recombinant 25 mg/ 275 mls @ 5 mls/hr 11/07/19 16:15 11/07/19 17:00 Sodium Chloride IVPB 11/09/19 23:14 5 mls/hr ONCE ONE Administration Mupirocin 1 applic 11/05/19 22:00 11/07/19 10:45 Bactroban Ointment (For Decolonization) - NS 11/10/19 21:59 1 applic BID CHERI Administration Sodium Chloride 2 spray 11/07/19 19:03 [place] Nasal [place] - NS Q2H PRN NASAL CONGESTION ASSESSMENT/PLAN: 54yo M with no PMHx presented with SOB and admitted to ICU acute hypoxic respiratory failure due to submassive PE. #Neuro AOx3, no focal deficits #Pulm unprovoked bilateral DVT with submassive PE (underlying malignancy) - double lumen cath placed by IR today 11/07/2019, one cath in each pulmonary artery for direct tPA drip - will be going to IR again tomorrow #Cardio hemodynamically stable - re-start heparin after 24h tPA - f/u for protein C, protein S deficiency, Factor V Leiden pending #ID - Blood cx no growth to date - COVID negative #FEN - regular diet #PPX - DVT: heparin - GI: none Visit type - Emergency Visit Emergency Visit: Yes ED Registration Date: 11/05/19 Care time: The patient presented to the Emergency Department on the above date and was hospitalized for further evaluation of their emergent condition. - New Patient This patient is new to me today: Yes Date on this admission: 11/07/19 - Critical Care Critical Care patient: Yes Total Critical Care Time (in minutes): 45 Critical Care Statement: The care of this patient involved high complexity decision making to prevent further life threatening deterioration of the patient's condition and/or to evaluate & treat vital organ system(s) failure or risk of failure. ATTENDING PHYSICIAN STATEMENT I saw and evaluated the patient. I reviewed the resident's note and discussed the case with the resident. I agree with the resident's findings and plan as documented. SUBJECTIVE: OBJECTIVE: ASSESSMENT AND PLAN:
[2019-11-07] MEDS: CHLORHEXIDINE GLUCONATE 4% CLEANSER FOR DECOLONIZATION TP SCH (22:13)
[2019-11-08 07:29] LABS: HEMATOCRIT 35.8 % (35.4-49); HEMOGLOBIN 12.1 GM/dL (11.7-16.9); MCHC 33.8 g/dl (32.0-35.9); MEAN CELL VOLUME 91.9 fl (80-96); MEAN PLT VOLUME 9.5 fl (7.5-11.1); PLATELET COUNT 128 K/MM3 (134-434); RDW 13.8 % (11.9-15.9); WHITE BLOOD COUNT 5.6 K/mm3 (4.0-10.0)
[2019-11-08] MEDS: HEPARIN NA (PORCINE) 5,000 UNITS/ML 1ML VIAL IVPUSH PRN (07:45)
[2019-11-08 07:50] LABS: ALBUMIN 2.9 g/dl (3.4-5.0); BLOOD UREA NITROGEN 14.9 mg/dL (7-18); CREATININE 0.9 mg/dL (0.55-1.3); MAGNESIUM 2.3 mg/dL (1.8-2.4); PHOSPHOROUS 3.8 mg/dL (2.5-4.9); POTASSIUM 3.9 mmol/L (3.5-5.1); TOT PROT 6.6 g/dl (6.4-8.2)
[2019-11-08] MEDS ORDERED: morphine SULFATE 4 MG/ML VIAL IVPUSH ONE (10:05)
[2019-11-08] MEDS: PANTOPRAZOLE SODIUM 40 MG VIAL IVPUSH SCH (10:28)
--- NOTE | 2019-11-08 12:31 | PN ---
Teaching Attending Note Name of Resident: Lucita Vaughn ATTENDING PHYSICIAN STATEMENT I saw and evaluated the patient. I reviewed the resident's note and discussed the case with the resident. I agree with the resident's findings and plan as documented. SUBJECTIVE: Patient seen and examined in the ICU. Remains on VM O2 and NC. Some posterior back pain. No hemoptysis. Less CP or SOB. Intake & Output 11/05/19 11/06/19 11/07/19 11/08/19 23:59 23:59 23:59 23:59 Intake Total 117 685.8 1357 855 Output Total 1350 1050 750 Balance 117 -664.2 307 105 Weight 238 lb 14.4 oz 238 lb 14.4 oz 239 lb 239 lb Last Vital Signs Temp Pulse Resp BP Pulse Ox 98.5 F 76 20 133/79 98 11/08/19 10:00 11/08/19 10:00 11/08/19 10:00 11/08/19 10:00 11/08/19 08:19 Active Medications Chlorhexidine Gluconate (Hibiclens For Decolonization -) 1 applic TP HS [facility] Last Admin: 11/07/19 22:13 Dose: 1 applic Documented by: Heparin Sodium (Porcine) (Heparin -) 4,300 unit 40 unit/kg (4300 unit) IVPUSH PRN PRN PRN Reason: For aPTT 35 to 45 seconds Last Admin: 11/06/19 17:00 Dose: 4,300 unit Documented by: Heparin Sodium (Porcine) (Heparin -) 8,700 unit 80 unit/kg (8700 unit) IVPUSH PRN PRN PRN Reason: aPTT <35 seconds Heparin Sodium (Porcine) 25, (000 unit/ Sodium Chloride) 500 mls @ 39.027 mls/hr IV TITR [facility]I; Protocol Last Titration: 11/08/19 08:11 Dose: 19 unit/kg/hr, 41.195 mls/hr Documented by: Alteplase, Recombinant 25 mg/ (Sodium Chloride) 275 mls @ 5 mls/hr IVPB ONCE ONE Stop: 11/09/19 23:14 Last Admin: 11/07/19 17:00 Dose: 5 mls/hr Documented by: Mupirocin (Bactroban Ointment (For Decolonization) -) 1 applic NS BID [facility] Stop: 11/10/19 21:59 Last Admin: 11/07/19 22:20 Dose: 1 applic Documented by: Pantoprazole Sodium (Protonix Iv) 40 mg IVPUSH DAILY [facility] Last Admin: 11/08/19 10:28 Dose: 40 mg Documented by: Sodium Chloride ([place] Nasal [place] -) 2 spray NS Q2H PRN PRN Reason: NASAL CONGESTION Constitutional: Yes: Well Nourished, Mildly tachypneic at rest Eyes: Yes: WNL, Conjunctiva Clear, EOM Intact HENT: Yes: WNL, Atraumatic, Normocephalic Neck: Yes: WNL, Supple, Trachea Midline Cardiovascular: Yes: WNL, Regular Rate and Rhythm Respiratory: Yes: Mildly tachypneic at rest, diminished throughout Gastrointestinal: Yes: WNL ...Rectal Exam: Yes: Deferred Breast(s): Yes: WNL Musculoskeletal: Yes: WNL Extremities: Yes: WNL Edema: No Peripheral Pulses WNL: Yes Integumentary: Yes: WNL Neurological: Yes: WNL ...Motor Strength: WNL Psychiatric: Yes: WNL Labs: Laboratory Results - last 24 hr 11/07/19 11/08/19 11/08/19 18:25 00:10 06:15 WBC 5.6 RBC 3.90 L Hgb 12.1 Hct 35.8 MCV 91.9 MCH 31.0 MCHC 33.8 RDW 13.8 Plt Count 128 L MPV 9.5 PTT (Actin FS) 56.4 H 46.3 H Sodium Potassium Chloride Carbon Dioxide Anion Gap BUN Creatinine Est GFR (CKD-EPI)AfAm Est GFR (CKD-EPI)NonAf Random Glucose Calcium Phosphorus Magnesium Total Bilirubin AST ALT Alkaline Phosphatase Total Protein Albumin 11/08/19 11/08/19 06:15 06:15 WBC RBC Hgb Hct MCV MCH MCHC RDW Plt Count MPV PTT (Actin FS) 43.6 H Sodium 136 Potassium 3.9 Chloride 103 Carbon Dioxide 22 Anion Gap 11 BUN 14.9 Creatinine 0.9 Est GFR (CKD-EPI)AfAm 111.05 Est GFR (CKD-EPI)NonAf 95.81 Random Glucose 96 Calcium 8.0 L Phosphorus 3.8 Magnesium 2.3 Total Bilirubin 1.0 AST 24 ALT 32 Alkaline Phosphatase 41 L Total Protein 6.6 Albumin 2.9 L Imaging - Results Chest X-ray: Report Reviewed Cat Scan: Report Reviewed (Submassive PE) EKG: Pending (s1q3t3) Assessment/Plan Extensive Bilateral PE : seems unprovoked R/O DVT Low clinical suspicion of COVID19 infection Lung nodule tPA and IV heparin drip per protocol Supplemental O2 as needed Thrombosis workup Will need age appropriate malignancy screening (need to follow lung nodule) Heparin per protocol Continue ICU monitoring Dr Sebastian
[2019-11-08] MEDS: MUPIROCIN 2% TOPICAL OINTMENT FOR DECOLONIZATION NS SCH ×2 (14:10→21:57)
[2019-11-08] MEDS: HEPARIN - 25,000 UNIT in SODIUM CHLORIDE 495 ML IV SCH (14:30)
--- NOTE | 2019-11-08 16:31 | PN ---
Physical Exam: SUBJECTIVE: Patient seen and examined. Appeared less pleasant compared to yesterday despite saying that he "feels fine". R neck dressing needed repeated changing due to leaking blood. Patient complained of back pain. Patient further explained that his last BM was at home. OBJECTIVE: Vital Signs Period Temp Pulse Resp BP Sys/Dowd Pulse Ox Last 24 Hr 97.4 F-98.6 F 69-95 18-30 120-147/74-95 95-98 GENERAL: The patient is awake, alert, and fully oriented, in no acute distress. HEAD: Normal with no signs of trauma. EYES: PERRL, extraocular movements intact, conjunctiva clear. LUNGS: Breath sounds equal, clear to auscultation bilaterally, no wheezes, no crackles. HEART: Regular rate and rhythm, S1, S2 without murmur, rub or gallop. ABDOMEN: mildly distended and rigid (baseline for patient). Nontender EXTREMITIES: warm, well-perfused, no edema. NEUROLOGICAL: Cranial nerves II through XII grossly intact. Normal speech. SKIN: Warm. Laboratory Results - last 24 hr 11/07/19 11/08/19 11/08/19 18:25 00:10 06:15 WBC 5.6 RBC 3.90 L Hgb 12.1 Hct 35.8 MCV 91.9 MCH 31.0 MCHC 33.8 RDW 13.8 Plt Count 128 L MPV 9.5 PTT (Actin FS) 56.4 H 46.3 H Sodium Potassium Chloride Carbon Dioxide Anion Gap BUN Creatinine Est GFR (CKD-EPI)AfAm Est GFR (CKD-EPI)NonAf Random Glucose Calcium Phosphorus Magnesium Total Bilirubin AST ALT Alkaline Phosphatase Total Protein Albumin 11/08/19 11/08/19 11/08/19 06:15 06:15 13:50 WBC RBC Hgb Hct MCV MCH MCHC RDW Plt Count MPV PTT (Actin FS) 43.6 H 68.6 H Sodium 136 Potassium 3.9 Chloride 103 Carbon Dioxide 22 Anion Gap 11 BUN 14.9 Creatinine 0.9 Est GFR (CKD-EPI)AfAm 111.05 Est GFR (CKD-EPI)NonAf 95.81 Random Glucose 96 Calcium 8.0 L Phosphorus 3.8 Magnesium 2.3 Total Bilirubin 1.0 AST 24 ALT 32 Alkaline Phosphatase 41 L Total Protein 6.6 Albumin 2.9 L Active Medications Generic Name Dose Route Start Last Admin Trade Name Freq PRN Reason Stop Dose Admin Chlorhexidine Gluconate 1 applic 11/05/19 22:00 11/07/19 22:13 Hibiclens For Decolonization - TP 1 applic HS [facility]I Administration Heparin Sodium (Porcine) 4,300 unit 11/05/19 20:01 11/06/19 17:00 Heparin - 40 unit/kg (4300 unit) 4,300 unit IVPUSH Administration PRN PRN For aPTT 35 to 45 seconds Heparin Sodium (Porcine) 8,700 unit 11/05/19 20:01 Heparin - 80 unit/kg (8700 unit) IVPUSH PRN PRN aPTT <35 seconds Heparin Sodium (Porcine) 25, 500 mls @ 39.027 mls/hr 11/05/19 20:01 11/08/19 14:30 000 unit/ Sodium Chloride IV 19 unit/kg/hr TITR [facility]I 41.195 mls/hr Administration Protocol 18 UNIT/KG/HR Alteplase, Recombinant 25 mg/ 275 mls @ 5 mls/hr 11/07/19 16:15 11/07/19 17:00 Sodium Chloride IVPB 11/09/19 23:14 5 mls/hr ONCE ONE Administration Mupirocin 1 applic 11/05/19 22:00 11/08/19 14:10 Bactroban Ointment (For Decolonization) - NS 11/10/19 21:59 1 applic BID [facility] Administration Pantoprazole Sodium 40 mg 11/08/19 10:00 11/08/19 10:28 Protonix Iv IVPUSH 40 mg DAILY [facility] Administration Sodium Chloride 2 spray 11/07/19 19:03 [place] Nasal [place] - NS Q2H PRN NASAL CONGESTION drips: heparin 17 units/kg/h, alteplase 0.0046 mg/kg/h in each catheter ASSESSMENT/PLAN: 54yo M with no PMHx presented with SOB and admitted to ICU acute hypoxic respiratory failure due to submassive PE. COVID negative. #Neuro AOx3, no focal deficits #Pulm unprovoked bilateral DVT with submassive PE (underlying malignancy?) - double lumen cath placed by IR today 11/07/2019, one cath in each pulmonary artery for direct tPA drip - will be going to IR again today, eventually planning for IVC filter placement. - once cleared from Dr. Joseph september restart eliquis #Cardio hemodynamically stable - re-started heparin, continuing tPA drip - f/u for protein C, protein S deficiency, Factor V Leiden pending #ID - Blood cx no growth to date - COVID negative #Heme - HemeOnc recommended CTAP - will order when patient completes tPA treatment and condition stabilizes #FEN - regular diet #PPX - DVT: heparin - GI: none Visit type - Emergency Visit Emergency Visit: Yes ED Registration Date: 11/05/19 Care time: The patient presented to the Emergency Department on the above date and was hospitalized for further evaluation of their emergent condition. - New Patient This patient is new to me today: No - Critical Care Critical Care patient: Yes Total Critical Care Time (in minutes): 37 Critical Care Statement: The care of this patient involved high complexity decision making to prevent further life threatening deterioration of the patient's condition and/or to evaluate & treat vital organ system(s) failure or risk of failure. ATTENDING PHYSICIAN STATEMENT I saw and evaluated the patient. I reviewed the resident's note and discussed the case with the resident. I agree with the resident's findings and plan as documented. SUBJECTIVE: OBJECTIVE: ASSESSMENT AND PLAN:
[2019-11-08 21:09] LABS: INR 1.28 (0.83-1.09); PROTHROMBIN TIME (PATIENT) 15.2 SEC (9.7-13.0)
[2019-11-08 21:11] LABS: ACTIVATED PTT 71.9 SECONDS (25.2-36.5)
[2019-11-08] MEDS: CHLORHEXIDINE GLUCONATE 4% CLEANSER FOR DECOLONIZATION TP SCH (21:57)
[2019-11-09] MEDS: PANTOPRAZOLE SODIUM 40 MG VIAL IVPUSH SCH (10:56)
[2019-11-09] MEDS: MUPIROCIN 2% TOPICAL OINTMENT FOR DECOLONIZATION NS SCH (10:57)
[2019-11-09] MEDS ORDERED: APIXABAN 5 MG TABLET PO SCH (12:30)
--- NOTE | 2019-11-09 12:32 | PN ---
Teaching Attending Note Name of Resident: Ariana Ibarra ATTENDING PHYSICIAN STATEMENT I saw and evaluated the patient. I reviewed the resident's note and discussed the case with the resident. I agree with the resident's findings and plan as documented. SUBJECTIVE: Patient seen and examined in the ICU. Remains on now on NC. Less posterior back pain. No hemoptysis. Less CP or SOB. Intake & Output 11/06/19 11/07/19 11/08/19 11/09/19 23:59 23:59 23:59 23:59 Intake Total 685.8 1357 1651.2 617.6 Output Total 1350 1050 1200 400 Balance -664.2 307 451.2 217.6 Weight 238 lb 14.4 oz 239 lb 239 lb 245 lb 1.6 oz Last Vital Signs Temp Pulse Resp BP Pulse Ox 98.5 F 66 16 126/79 98 11/09/19 10:00 11/09/19 10:00 11/09/19 10:00 11/09/19 10:00 11/09/19 09:00 Active Medications Apixaban (Eliquis -) 10 mg PO BID [facility] Stop: 11/23/19 12:29 Chlorhexidine Gluconate (Hibiclens For Decolonization -) 1 applic TP HS [facility] Last Admin: 11/08/19 21:57 Dose: 1 applic Documented by: Mupirocin (Bactroban Ointment (For Decolonization) -) 1 applic NS BID [facility] Stop: 11/10/19 21:59 Last Admin: 11/09/19 10:57 Dose: 1 applic Documented by: Pantoprazole Sodium (Protonix Iv) 40 mg IVPUSH DAILY [facility] Last Admin: 11/09/19 10:56 Dose: 40 mg Documented by: Sodium Chloride ([place] Nasal [place] -) 2 spray NS Q2H PRN PRN Reason: NASAL CONGESTION Constitutional: Yes: Well Nourished, NAD Eyes: Yes: WNL, Conjunctiva Clear, EOM Intact HENT: Yes: WNL, Atraumatic, Normocephalic Neck: Yes: WNL, Supple, Trachea Midline Cardiovascular: Yes: WNL, Regular Rate and Rhythm Respiratory: Yes: diminished throughout Gastrointestinal: Yes: WNL ...Rectal Exam: Yes: Deferred Breast(s): Yes: WNL Musculoskeletal: Yes: WNL Extremities: Yes: WNL Edema: No Peripheral Pulses WNL: Yes Integumentary: Yes: WNL Neurological: Yes: WNL ...Motor Strength: WNL Psychiatric: Yes: WNL Labs: Laboratory Results - last 24 hr 11/08/19 11/08/19 11/09/19 13:50 20:33 03:15 PT with INR 15.20 H INR 1.28 H PTT (Actin FS) 68.6 H 71.9 H 68.9 H 11/09/19 09:32 PT with INR INR PTT (Actin FS) 65.7 H Imaging - Results Chest X-ray: Report Reviewed Cat Scan: Report Reviewed (Submassive PE) EKG: Pending (s1q3t3) Assessment/Plan Extensive Bilateral PE : seems unprovoked R/O DVT Low clinical suspicion of COVID19 infection Lung nodule IV heparin drip : Transition to DOAC Supplemental O2 as needed Thrombosis workup Will need age appropriate malignancy screening (need to follow lung nodule) Heparin per protocol Cardiac Telemetry monitoring Dr Sebastian
[2019-11-09] MEDS ORDERED: SODIUM CHLORIDE NASAL SPRAY 44 ML BOTTLE NS PRN (16:05)
--- NOTE | 2019-11-09 16:13 | PN ---
Physical Exam: SUBJECTIVE: Patient seen and examined. Pt denies chest pain, shortness of breath. Good appetite. OBJECTIVE: Vital Signs Period Temp Pulse Resp BP Sys/Dowd Pulse Ox Last 24 Hr 98.2 F-98.9 F 63-86 14-20 117-145/77-90 96-99 GENERAL: The patient is awake, alert, and fully oriented, in no acute distress. HEAD: Normal with no signs of trauma. EYES: PERRL, extraocular movements intact, conjunctiva clear. ENT: Ears normal, nares patent, moist mucous membranes. On NC. NECK: Trachea midline, full range of motion, supple. Bandage at right neck base, mild induration surrounding, no ecchymosis. LUNGS: Clear to auscultation bilaterally, no wheezes, no crackles, no accessory muscle use. HEART: Regular rate and rhythm, no murmur. ABDOMEN: Soft, nontender, nondistended, normoactive bowel sounds. EXTREMITIES: Warm, well-perfused, no edema. NEUROLOGICAL: Cranial nerves II through XII grossly intact. Normal speech. PSYCH: Normal mood, normal affect. SKIN: Warm, dry, normal turgor. Laboratory Results - last 24 hr 11/08/19 11/09/19 11/09/19 20:33 03:15 09:32 PT with INR 15.20 H INR 1.28 H PTT (Actin FS) 71.9 H 68.9 H 65.7 H Active Medications Generic Name Dose Route Start Last Admin Trade Name Freq PRN Reason Stop Dose Admin Apixaban 10 mg 11/09/19 22:00 Eliquis - PO 11/23/19 12:29 BID [facility]ERI Pantoprazole Sodium 40 mg 11/10/19 10:00 Protonix Iv IVPUSH DAILY [facility] Sodium Chloride 2 spray 11/09/19 16:05 [place] Nasal [place] - NS Q2H PRN NASAL CONGESTION ASSESSMENT/PLAN: 54 y/o male with no reported PMH c/o SOB admitted for submassive PE. # Neuro - A&Ox3 # Pulm - CT: Emboli in LEFT and RIGHT pulm artery, straddling bifurcation as well as upper and lower lobes branches WITH RIGHT heart strain - s/p guided alteplase and heparin gtt by IR - lung nodule noted on CT, f/u - possible IVC placement later, pt in agreement for placement at this time # Cardio - DVTs - hemodynamically stable - Eliquis 10mg BID x7 days, then 5mg BID # Renal -MIKE, resolved # Heme - unprovoked submassive PE, pt reports sitting 12 hr/day 6 day/wk for work - F/u protein C, protein S deficiency, Factor V Leiden - oncology following - recommended abd/pelvis CT when able FEN PO monitor regular diet Ppx Eliquis Dispo transfer to tele FULL CODE Visit type - Emergency Visit Emergency Visit: Yes ED Registration Date: 11/05/19 Care time: The patient presented to the Emergency Department on the above date and was hospitalized for further evaluation of their emergent condition. - New Patient This patient is new to me today: Yes Date on this admission: 11/09/19 - Critical Care Critical Care patient: Yes Total Critical Care Time (in minutes): 35 Critical Care Statement: The care of this patient involved high complexity decision making to prevent further life threatening deterioration of the patient's condition and/or to evaluate & treat vital organ system(s) failure or risk of failure. ATTENDING PHYSICIAN STATEMENT I saw and evaluated the patient. I reviewed the resident's note and discussed the case with the resident. I agree with the resident's findings and plan as documented. SUBJECTIVE: OBJECTIVE: ASSESSMENT AND PLAN:
--- NOTE | 2019-11-09 17:54 | PN.HO ---
Progress Note (short form) - Note Progress Note: Patient seen and examined No symptoms Last Vital Signs Temp Pulse Resp BP Pulse Ox 98.8 F 70 18 145/81 98 11/09/19 15:55 11/09/19 15:55 11/09/19 15:55 11/09/19 15:55 11/09/19 09:00 Cor: RSR, No murmurs, No gallops Lungs: Clear to P&A Abd: Soft, Normal bowel sounds, No organomegaly Ext:No significant edema Labs/Meds reviewed A/P Extensive Bilateral PE rt. heart strain : seems unprovoked s/p thrombolysis b/l popliteal DVT RUL and RLL opacities --need f/u On eliquis 10mg bid Discussed regarding age appropriate cancer screeening withpatient. No family h/o cancer
--- NOTE | 2019-11-09 18:01 | PN ---
Progress Note (short form) - Note Progress Note: Being transferred from ICU status post acute pulmonary embolism He is comfortable has no shortness of breath. No nausea vomiting.Ate his food for dinner no nausea vomiting after that. Vital Signs Period Temp Pulse Resp BP Sys/Dowd Pulse Ox Last 24 Hr 98.2 F-98.9 F 63-86 14-20 117-145/77-89 96-98 Patient is comfortable HEENT normal Neck supple no JVD He has a dressing on the right side of the catheter site which need to be changed on Tuesday. Lungs clear no wheezing Abdomen nontender no organomegaly bowel sounds normal Extremities no edema no cyanosis normal pulses Neurologically he is alert awake oriented, nonfocal Skin no rash noted CBC, BMP 11/08/19 06:15 11/08/19 06:15 Current Medications Generic Name Dose Route Start Last Admin Trade Name Freq PRN Reason Stop Dose Admin Apixaban 10 mg 11/09/19 22:00 Eliquis - PO 11/23/19 12:29 BID [facility] Pantoprazole Sodium 40 mg 11/10/19 10:00 Protonix Iv IVPUSH DAILY [facility] Sodium Chloride 2 spray 11/09/19 16:05 [place] Nasal [place] - NS Q2H PRN NASAL CONGESTION Discontinued Medications Generic Name Dose Route Start Last Admin Trade Name Freq PRN Reason Stop Dose Admin Alteplase, Recombinant 15 mg 11/07/19 11:17 11/07/19 11:38 Tpa - IVPB 11/07/19 11:18 Not Given ONCE ONE Apixaban 10 mg 11/09/19 12:30 11/09/19 13:23 Eliquis - PO 11/23/19 12:29 10 mg BID [facility] Administration Chlorhexidine Gluconate 1 applic 11/05/19 22:00 11/08/19 21:57 Hibiclens For Decolonization - TP 1 applic HS [facility] Administration Chlorhexidine Gluconate 1 applic 11/09/19 22:00 Hibiclens For Decolonization - TP HS [facility] Heparin Sodium (Porcine) 8,700 unit 11/05/19 17:00 11/05/19 17:26 Heparin - 80 unit/kg (8700 unit) 11/05/19 17:01 8,700 unit IVPUSH Administration ONCE ONE Heparin Sodium (Porcine) 4,300 unit 11/05/19 17:00 Heparin - 40 unit/kg (4300 unit) IVPUSH PRN PRN For aPTT 35 to 45 seconds Heparin Sodium (Porcine) 8,700 unit 11/05/19 17:00 Heparin - 80 unit/kg (8700 unit) IVPUSH PRN PRN aPTT <35 seconds Heparin Sodium (Porcine) 4,300 unit 11/05/19 20:01 11/08/19 07:45 Heparin - 40 unit/kg (4300 unit) 4,300 unit IVPUSH Administration PRN PRN For aPTT 35 to 45 seconds Heparin Sodium (Porcine) 8,700 unit 11/05/19 20:01 Heparin - 80 unit/kg (8700 unit) IVPUSH PRN PRN aPTT <35 seconds Heparin Sodium (Porcine) 25, 500 mls @ 39.027 mls/hr 11/05/19 17:00 11/05/19 17:26 000 unit/ Sodium Chloride IV 18 unit/kg/hr TITR [facility] 39.027 mls/hr Administration Protocol 18 UNIT/KG/HR Heparin Sodium (Porcine) 25, 500 mls @ 39.027 mls/hr 11/05/19 20:01 11/08/19 21:16 000 unit/ Sodium Chloride IV 17 unit/kg/hr TITR [facility] 36.859 mls/hr Titration Protocol 18 UNIT/KG/HR Alteplase, Recombinant 25 mg/ 250 mls @ 10 mls/hr 11/06/19 18:00 11/06/19 19:23 Sodium Chloride [place] 11/07/19 18:59 10 mls/hr ONCE ONE Administration Alteplase, Recombinant 15 mg/ 150 mls @ 12.5 mls/hr 11/07/19 11:30 11/07/19 14:17 Sodium Chloride CVP 11/07/19 23:29 12.5 mls/hr ONCE ONE Administration Alteplase, Recombinant 25 mg/ 275 mls @ 5 mls/hr 11/07/19 16:15 11/07/19 17:00 Sodium Chloride IVPB 11/09/19 23:14 5 mls/hr ONCE ONE Administration Morphine Sulfate 4 mg 11/08/19 10:05 11/08/19 10:28 Morphine Sulfate IVPUSH 11/08/19 10:06 4 mg ONCE ONE Administration Mupirocin 1 applic 11/05/19 22:00 11/09/19 10:57 Bactroban Ointment (For Decolonization) - NS 11/10/19 21:59 1 applic BID [facility] Administration Pantoprazole Sodium 40 mg 11/08/19 10:00 11/09/19 10:56 Protonix Iv IVPUSH 40 mg DAILY [facility] Administration Sodium Chloride 2 spray 11/07/19 19:03 [place] Nasal [place] - NS Q2H PRN NASAL CONGESTION Assessment and plan Bilateral extensive PE unprovoked. Rule out any suspicious malignancy. [facility] to 75 the room on telemetry monitoring. He is on Eliquis at this time I ordered a CT abdomen pelvis rule out any occult malignancy. Patient is stable at this time. Visit type - Emergency Visit Emergency Visit: Yes ED Registration Date: 11/05/19 Care time: The patient presented to the Emergency Department on the above date and was hospitalized for further evaluation of their emergent condition. - New Patient This patient is new to me today: Yes Date on this admission: 11/09/19 - Critical Care Critical Care patient: No - Discharge Referral Referred to [facility] Med [facility] No
[2019-11-09] MEDS ORDERED: CHLORHEXIDINE GLUCONATE 4% CLEANSER FOR DECOLONIZATION TP SCH (22:00)
[2019-11-09] MEDS: APIXABAN 5 MG TABLET PO SCH (22:12)
[2019-11-10 08:30] LABS: BASO % 0.7 % (0-2.0); EOS % 1.3 % (0-4.5); HEMATOCRIT 34.5 % (35.4-49); HEMOGLOBIN 11.6 GM/dL (11.7-16.9); LYMPH % 28.6 % (8-40); MCH 31.3 pg (25.7-33.7); MCHC 33.6 g/dl (32.0-35.9); MEAN PLT VOLUME 8.7 fl (7.5-11.1); MONO % 9.9 % (3.8-10.2); NEUT % 59.5 % (42.8-82.8); PLATELET COUNT 202 K/MM3 (134-434); RBC 3.71 M/mm3 (4.00-5.60); RDW 13.5 % (11.9-15.9); WHITE BLOOD COUNT 4.3 K/mm3 (4.0-10.0)
[2019-11-10] MEDS: PANTOPRAZOLE SODIUM 40 MG VIAL IVPUSH SCH (09:05)
[2019-11-10] MEDS: APIXABAN 5 MG TABLET PO SCH ×2 (09:05→21:14)
--- NOTE | 2019-11-10 11:35 | PN ---
Progress Note (short form) - Note Progress Note: Patient is feeling better, denies any shortness of breath, no fever or chills. Vital Signs Temperature 98.1 F 11/10/19 09:28 Pulse Rate 76 11/10/19 09:28 Respiratory Rate 18 11/10/19 09:28 Blood Pressure 130/84 11/10/19 09:28 O2 Sat by Pulse Oximetry (%) 97 11/09/19 21:00 Initial Vital Signs Pulse Resp BP Pulse Ox 115 H 20 119/81 86 L 11/05/19 13:54 11/05/19 13:54 11/05/19 13:54 11/05/19 13:54 GENERAL: The patient is awake, alert, and fully oriented, in no acute distress. HEAD: Normal with no signs of trauma. EYES: PERRL, extraocular movements intact, sclera anicteric, conjunctiva clear. ENT: Ears normal, oropharynx clear without exudates, moist mucous membranes. NECK: Trachea midline, full range of motion, supple. LUNGS: decreased BS BL otherwise clear to auscultation bilaterally, no wheezes, no crackles, no accessory muscle use. HEART: Regular rate and rhythm, S1, S2 without murmur, rub or gallop. ABDOMEN: Soft, nontender, nondistended, normoactive bowel sounds, no guarding, no rebound, no hepatosplenomegaly, no masses. EXTREMITIES: 2+ pulses, warm, well-perfused, no edema. old scr on his right martines NEUROLOGICAL: Cranial nerves II through XII grossly intact. Normal speech, gait not observed. PSYCH: Normal mood, normal affect. SKIN: Warm, dry, normal turgor, no rashes or lesions noted CBCD WBC 4.3 K/mm3 (4.0-10.0) 11/10/19 06:44 RBC 3.71 M/mm3 (4.00-5.60) L 11/10/19 06:44 Hgb 11.6 GM/dL (11.7-16.9) L 11/10/19 06:44 Hct 34.5 % (35.4-49) L 11/10/19 06:44 MCV 93.0 fl (80-96) 11/10/19 06:44 MCHC 33.6 g/dl (32.0-35.9) 11/10/19 06:44 RDW 13.5 % (11.9-15.9) 11/10/19 06:44 Plt Count 202 K/MM3 (134-434) D 11/10/19 06:44 MPV 8.7 fl (7.5-11.1) 11/10/19 06:44 CMP Sodium 136 mmol/L (136-145) 11/08/19 06:15 Potassium 3.9 mmol/L (3.5-5.1) 11/08/19 06:15 Chloride 103 mmol/L (98-107) 11/08/19 06:15 Carbon Dioxide 22 mmol/L (21-32) 11/08/19 06:15 Anion Gap 11 MMOL/L (8-16) 11/08/19 06:15 BUN 14.9 mg/dL (7-18) 11/08/19 06:15 Creatinine 0.9 mg/dL (0.55-1.3) 11/08/19 06:15 Random Glucose 96 mg/dL (74-106) 11/08/19 06:15 Calcium 8.0 mg/dL (8.5-10.1) L 11/08/19 06:15 Total Bilirubin 1.0 mg/dL (0.2-1) 11/08/19 06:15 AST 24 U/L (15-37) 11/08/19 06:15 ALT 32 U/L (13-61) 11/08/19 06:15 Alkaline Phosphatase 41 U/L (45-117) L 11/08/19 06:15 Total Protein 6.6 g/dl (6.4-8.2) 11/08/19 06:15 Albumin 2.9 g/dl (3.4-5.0) L 11/08/19 06:15 CARDIAC ENZYMES Creatine Kinase 251 U/L (26-308) 11/06/19 05:55 Troponin I 0.42 ng/ml (0.00-0.05) H 11/06/19 05:55 Troponin I 0.42 ng/ml (0.00-0.05) H 11/06/19 05:55 Current Medications Generic Name Dose Route Start Last Admin Trade Name Freq PRN Reason Stop Dose Admin Apixaban 10 mg 11/09/19 22:00 11/10/19 09:05 Eliquis - PO 11/23/19 12:29 10 mg BID CHERI Administration Pantoprazole Sodium 40 mg 11/10/19 10:00 11/10/19 09:05 Protonix Iv IVPUSH 40 mg DAILY CHERI Administration Sodium Chloride 2 spray 11/09/19 16:05 [place] Nas[place] - NS Q2H PRN NASAL CONGESTION EKG: sinus tachy, rate 118, otherwise nl ECHO: left ventricle is nl, mild concentric left ventricular hypertrophy, EJF 65%, RIGHT VENTRICLE IS MODERATELY DILATED, RIGHT VENTRICLE SYSTOLIC FUNCTION IS MODERATELY REDUCED, TRACE mr, TRACE tr, RIGHT VENTRICULAR SYSTOLIC PRESSURE IS 41MMHG IS ELEVATED, TRACE AORTIC REGURG, TRACE DUPLEX Of LE: DVT bl popliteal veins CT abdomen and pelvis: right and left main pulmonary artery emboli again noted, small bl pleural effusions with bibasilar atelectasis. 2cm peripheral density right midlung field probably an infarction also seen on prior study,follow up recommended to r/o neoplasia, small fat containing inguinal hernia Assessment and plan: This patient is a 54 y/o male with no significant PMHx presented with SOB and decreased appetite and was admitted for BL extensive PE # Extensive Bilateral PE : seems unprovoked, s/p Tpa , Thrombosis workup is pending ,s/p heparin , Ct abdomen and pelvis pending the read to r/o any malignancy, on Eliquis 10mg bid continue. b/l popliteal DVT , Supplemental O2 as needed #COVID19 infection , not detected #Lung nodule: 2cm peripheral density right midlung field probably also noted on prior study DVT Px: Eliquis Visit type - Emergency Visit Emergency Visit: Yes ED Registration Date: 11/05/19 Care time: The patient presented to the Emergency Department on the above date and was hospitalized for further evaluation of their emergent condition. - New Patient This patient is new to me today: Yes Date on this admission: 11/10/19 - Critical Care Critical Care patient: No - Discharge Referral Referred to [facility] No
[2019-11-10 12:07] LABS: PROTEIN S, FREE 143 % (57-157)
--- NOTE | 2019-11-10 15:48 | PN ---
Progress Note (short form) - Note Progress Note: PULMONARY Denies shortness of breath or chest pain. Vital Signs Period Temp Pulse Resp BP Sys/Dowd Pulse Ox Last 24 Hr 98.0 F-98.8 F 65-78 18-19 120-145/69-84 97-97 Gen: NAD at rest Heart: RRR Lung: decreased breath sounds at the bases Abd: soft, nontender Ext: no edema CBC, BMP 11/10/19 06:44 11/08/19 06:15 Active Medications Apixaban (Eliquis -) 10 mg PO BID [facility] Stop: 11/23/19 12:29 Last Admin: 11/10/19 09:05 Dose: 10 mg Documented by: Pantoprazole Sodium (Protonix Iv) 40 mg IVPUSH DAILY [facility] Last Admin: 11/10/19 09:05 Dose: 40 mg Documented by: Sodium Chloride ([place] -) 2 spray NS Q2H PRN PRN Reason: NASAL CONGESTION A/P Acute Submassive PE s/p catheter directed Thrombectomy/Thrombolysis Bilateral DVTs Lung Nodule Anemia - continue anticoagulation - O2 as needed - monitor H/H
[2019-11-11] MEDS: APIXABAN 5 MG TABLET PO SCH ×2 (09:49→21:12)
[2019-11-11] MEDS: PANTOPRAZOLE SODIUM 40 MG VIAL IVPUSH SCH (09:49)
--- NOTE | 2019-11-11 15:16 | PN ---
Physical Exam: SUBJECTIVE: Patient seen and examined BERNICE. Wore NC O2 overnight bc he thinks it helps him sleep better Denies SOB, cough, CP. Feels well. No blood in urine or stool OBJECTIVE: Vital Signs Period Temp Pulse Resp BP Sys/Dowd Pulse Ox Last 24 Hr 97.8 F-98.9 F 65-79 18-18 110-144/69-86 93-96 GENERAL: NAD. HEAD: NC/AT. EYES: sclera anicteric, conjunctiva clear and w/o pallor. ENT: oropharynx clear without exudates, moist mucous membranes. NECK: Trachea midline, full range of motion, supple. Right neck base with healing catheter puncture-site LUNGS: Breath sounds equal, clear to auscultation bilaterally, no wheezes, no crackles, no accessory muscle use. On NC 3L HEART: Regular rate and rhythm, S1, S2 without murmur, rub or gallop. ABDOMEN: Soft, nontender, nondistended, no guarding, no rebound. EXTREMITIES: 2+ pulses, warm, well-perfused, no edema. NEUROLOGICAL: Normal speech, Laboratory Results - last 24 hr 11/11/19 06:40 PTT (Actin FS) 29.8 Active Medications Generic Name Dose Route Start Last Admin Trade Name Freq PRN Reason Stop Dose Admin Apixaban 10 mg 11/09/19 22:00 11/11/19 09:49 Eliquis - PO 11/23/19 12:29 10 mg BID CHERI Administration Pantoprazole Sodium 40 mg 11/10/19 10:00 11/11/19 09:49 Protonix Iv IVPUSH 40 mg DAILY CHERI Administration Sodium Chloride 2 spray 11/09/19 16:05 [place] - NS Q2H PRN NASAL CONGESTION ASSESSMENT/PLAN: 54M w/ no significant PMH presented to [facility] for SOB x4. D-dimer 17,339. Troponin 0.71 on presentation. CTA notable for emboli w/in L and R pulmonary arteries, and bifurcation. Admitted for submassive PE with Right-heart strain. S/P catheter-guided TPA, thrombectomy(Gabrael, 11/05, 11/06) #submassive PE w/a Right-heart strain #Right midlung peripheral density --probable infarct but cannot exclude neoplasm > CTA chest: Emboli in LEFT and RIGHT pulm artery, straddling bifurcation as well as upper and lower lobes branches WITH RIGHT heart strain - s/p catheter-directed TPA(Gabrael, 11/05 and 11/06) - outpt fu for RML "density" - possible IVC placement on 11/12/2019 #elevated troponin --julia 06/10 Right heart strain ---improved > troponin 0.71, 0.68, 0.55, 0.42, 0.42 --plateauing > Echo: LVEF 65%, mod dil RV, mild reduced RV syst funct, RVSP 41mmHg - monitor vitals #b/l popliteal DVTs --unprovoked > US venous duplex BLE: b/l nonocclusive thrombi w/in popliteal veins > fu protein C, protein S deficiency, Factor V Leiden > CT A/P: small fat-containing inguinal hernias - Onc consult(Antoine): --CT A/P to eval for malignancy --no obvious malignancy - AC via Eliquis #MIKE --improved > Cr 1.6, 1.2, 1.1 - monitor FEN - regular diet - no mIVF PPX - Eliquis 10mg BID Visit type - Emergency Visit Emergency Visit: No - New Patient This patient is new to me today: Yes Date on this admission: 11/11/19 - Critical Care Critical Care patient: No ATTENDING PHYSICIAN STATEMENT I saw and evaluated the patient. I reviewed the resident's note and discussed the case with the resident. I agree with the resident's findings and plan as documented. SUBJECTIVE: OBJECTIVE: ASSESSMENT AND PLAN:
--- NOTE | 2019-11-11 15:46 | PN ---
Teaching Attending Note Name of Resident: Osvaldo Resendiz ATTENDING PHYSICIAN STATEMENT I saw and evaluated the patient. I reviewed the resident's note and discussed the case with the resident. I agree with the resident's findings and plan as documented. SUBJECTIVE: Patient has no new complains, denies any shortness of breath. OBJECTIVE: Vital Signs Temperature 98.8 F 11/11/19 13:44 Pulse Rate 78 11/11/19 13:44 Respiratory Rate 18 11/11/19 13:44 Blood Pressure 132/74 11/11/19 13:44 O2 Sat by Pulse Oximetry (%) 96 11/11/19 12:44 PE:per resident's note CBCD WBC 4.3 K/mm3 (4.0-10.0) 11/10/19 06:44 RBC 3.71 M/mm3 (4.00-5.60) L 11/10/19 06:44 Hgb 11.6 GM/dL (11.7-16.9) L 11/10/19 06:44 Hct 34.5 % (35.4-49) L 11/10/19 06:44 MCV 93.0 fl (80-96) 11/10/19 06:44 MCHC 33.6 g/dl (32.0-35.9) 11/10/19 06:44 RDW 13.5 % (11.9-15.9) 11/10/19 06:44 Plt Count 202 K/MM3 (134-434) D 11/10/19 06:44 MPV 8.7 fl (7.5-11.1) 11/10/19 06:44 CMP Sodium 136 mmol/L (136-145) 11/08/19 06:15 Potassium 3.9 mmol/L (3.5-5.1) 11/08/19 06:15 Chloride 103 mmol/L (98-107) 11/08/19 06:15 Carbon Dioxide 22 mmol/L (21-32) 11/08/19 06:15 Anion Gap 11 MMOL/L (8-16) 11/08/19 06:15 BUN 14.9 mg/dL (7-18) 11/08/19 06:15 Creatinine 0.9 mg/dL (0.55-1.3) 11/08/19 06:15 Random Glucose 96 mg/dL (74-106) 11/08/19 06:15 Calcium 8.0 mg/dL (8.5-10.1) L 11/08/19 06:15 Total Bilirubin 1.0 mg/dL (0.2-1) 11/08/19 06:15 AST 24 U/L (15-37) 11/08/19 06:15 ALT 32 U/L (13-61) 11/08/19 06:15 Alkaline Phosphatase 41 U/L (45-117) L 11/08/19 06:15 Total Protein 6.6 g/dl (6.4-8.2) 11/08/19 06:15 Albumin 2.9 g/dl (3.4-5.0) L 11/08/19 06:15 CARDIAC ENZYMES Creatine Kinase 251 U/L (26-308) 11/06/19 05:55 Troponin I 0.42 ng/ml (0.00-0.05) H 11/06/19 05:55 Troponin I 0.42 ng/ml (0.00-0.05) H 11/06/19 05:55 Current Medications Generic Name Dose Route Start Last Admin Trade Name Freq PRN Reason Stop Dose Admin Apixaban 10 mg 11/09/19 22:00 11/11/19 09:49 Eliquis - PO 11/23/19 12:29 10 mg BID CHERI Administration Pantoprazole Sodium 40 mg 11/10/19 10:00 11/11/19 09:49 Protonix Iv IVPUSH 40 mg DAILY CHERI Administration Sodium Chloride 2 spray 11/09/19 16:05 [place] Nasal [place] - NS Q2H PRN NASAL CONGESTION EKG: sinus tachy, rate 118, otherwise nl ECHO: left ventricle is nl, mild concentric left ventricular hypertrophy, EJF 65%, RIGHT VENTRICLE IS MODERATELY DILATED, RIGHT VENTRICLE SYSTOLIC FUNCTION IS MODERATELY REDUCED, TRACE mr, TRACE tr, RIGHT VENTRICULAR SYSTOLIC PRESSURE IS 41MMHG IS ELEVATED, TRACE AORTIC REGURG, TRACE DUPLEX Of LE: DVT bl popliteal veins CT abdomen and pelvis: right and left main pulmonary artery emboli again noted, small bl pleural effusions with bibasilar atelectasis. 2cm peripheral density right midlung field probably an infarction also seen on prior study,follow up recommended to r/o neoplasia, small fat containing inguinal hernia Assessment and plan: This patient is a 54 y/o male with no significant PMHx presented with SOB and decreased appetite and was admitted for BL extensive PE # Extensive Bilateral PE : seems unprovoked, s/p Tpa , Thrombosis workup is pending ,s/p heparin , on Eliquis 10mg bid continue. b/l popliteal DVT , Supplemental O2 as needed #COVID19 infection , not detected #Lung nodule: 2cm peripheral density right midlung field probably also noted on prior study, follow up CT as an outpatient. DVT Px: Eliquis FOR possible IVC filter in am
--- NOTE | 2019-11-12 08:53 | PN ---
Teaching Attending Note Name of Resident: Marisa Alford ATTENDING PHYSICIAN STATEMENT I saw and evaluated the patient. I reviewed the resident's note and discussed the case with the resident. I agree with the resident's findings and plan as documented. SUBJECTIVE: Patient is comfortable with no acute distress. OBJECTIVE: Vital Signs Temperature 98.6 F 11/12/19 06:00 Pulse Rate 66 11/12/19 06:00 Respiratory Rate 18 11/12/19 06:00 Blood Pressure 131/72 11/12/19 06:00 O2 Sat by Pulse Oximetry (%) 93 L 11/11/19 23:00 PE: per resident's note IVC filter placed on his neck CBCD WBC 4.3 K/mm3 (4.0-10.0) 11/10/19 06:44 RBC 3.71 M/mm3 (4.00-5.60) L 11/10/19 06:44 Hgb 11.6 GM/dL (11.7-16.9) L 11/10/19 06:44 Hct 34.5 % (35.4-49) L 11/10/19 06:44 MCV 93.0 fl (80-96) 11/10/19 06:44 MCHC 33.6 g/dl (32.0-35.9) 11/10/19 06:44 RDW 13.5 % (11.9-15.9) 11/10/19 06:44 Plt Count 202 K/MM3 (134-434) D 11/10/19 06:44 MPV 8.7 fl (7.5-11.1) 11/10/19 06:44 CMP Sodium 136 mmol/L (136-145) 11/08/19 06:15 Potassium 3.9 mmol/L (3.5-5.1) 11/08/19 06:15 Chloride 103 mmol/L (98-107) 11/08/19 06:15 Carbon Dioxide 22 mmol/L (21-32) 11/08/19 06:15 Anion Gap 11 MMOL/L (8-16) 11/08/19 06:15 BUN 14.9 mg/dL (7-18) 11/08/19 06:15 Creatinine 0.9 mg/dL (0.55-1.3) 11/08/19 06:15 Random Glucose 96 mg/dL (74-106) 11/08/19 06:15 Calcium 8.0 mg/dL (8.5-10.1) L 11/08/19 06:15 Total Bilirubin 1.0 mg/dL (0.2-1) 11/08/19 06:15 AST 24 U/L (15-37) 11/08/19 06:15 ALT 32 U/L (13-61) 11/08/19 06:15 Alkaline Phosphatase 41 U/L (45-117) L 11/08/19 06:15 Total Protein 6.6 g/dl (6.4-8.2) 11/08/19 06:15 Albumin 2.9 g/dl (3.4-5.0) L 11/08/19 06:15 CARDIAC ENZYMES Creatine Kinase 251 U/L (26-308) 11/06/19 05:55 Troponin I 0.42 ng/ml (0.00-0.05) H 11/06/19 05:55 Troponin I 0.42 ng/ml (0.00-0.05) H 11/06/19 05:55 Current Medications Generic Name Dose Route Start Last Admin Trade Name Freq PRN Reason Stop Dose Admin Apixaban 10 mg 11/09/19 22:00 11/11/19 21:12 Eliquis - PO 11/23/19 12:29 10 mg BID CHERI Administration Pantoprazole Sodium 40 mg 11/10/19 10:00 11/11/19 09:49 Protonix Iv IVPUSH 40 mg DAILY CHERI Administration Sodium Chloride 2 spray 11/09/19 16:05 [place] Nasal [place] - NS Q2H PRN NASAL CONGESTION EKG: sinus tachy, rate 118, otherwise nl ECHO: left ventricle is nl, mild concentric left ventricular hypertrophy, EJF 65%, RIGHT VENTRICLE IS MODERATELY DILATED, RIGHT VENTRICLE SYSTOLIC FUNCTION IS MODERATELY REDUCED, TRACE mr, TRACE tr, RIGHT VENTRICULAR SYSTOLIC PRESSURE IS 41MMHG IS ELEVATED, TRACE AORTIC REGURG, TRACE DUPLEX Of LE: DVT bl popliteal veins CT abdomen and pelvis: right and left main pulmonary artery emboli again noted, small bl pleural effusions with bibasilar atelectasis. 2cm peripheral density right midlung field probably an infarction also seen on prior study,follow up recommended to r/o neoplasia, small fat containing inguinal hernia Assessment and plan: This patient is a 54 y/o male with no significant PMHx presented with SOB and decreased appetite and was admitted for BL extensive PE # Extensive Bilateral PE : seems unprovoked, s/p Tpa , Thrombosis workup is pending ,s/p heparin , on Eliquis 10mg bid x 4 more day sthen continue with eliquis 5mg po bid and follow up with your primary care physician to continue your medication you might need to be on it for the rest of your life. b/l popliteal DVT , Supplemental O2 as needed s/p IVC filter by dr Joseph , would like to see you within 3 months period. #COVID19 infection , not detected #Lung nodule: 2cm peripheral density right midlung field probably also noted on prior study, follow up CT as an outpatient within 3 months with pulmonary . DVT Px: Eliquis
[2019-11-12] MEDS: PANTOPRAZOLE SODIUM 40 MG VIAL IVPUSH SCH (09:24)
[2019-11-12] MEDS: APIXABAN 5 MG TABLET PO SCH (09:24)
--- NOTE | 2019-11-12 13:26 | PN ---
Progress Note (short form) - Note Progress Note: Resting in NAD on RA. Denies shortness of breath or chest pain. Intake & Output 11/09/19 11/10/19 11/11/19 11/12/19 23:59 23:59 23:59 23:59 Intake Total 977.6 325 1780 0 Output Total 1000 1420 Balance -22.4 -1095 1780 0 Weight 245 lb 1.6 oz Last Vital Signs Temp Pulse Resp BP Pulse Ox 98.7 F 69 15 142/76 98 11/12/19 09:10 11/12/19 12:40 11/12/19 12:40 11/12/19 12:40 11/12/19 12:40 Active Medications Apixaban (Eliquis -) 10 mg PO BID CHERI Stop: 11/23/19 12:29 Last Admin: 11/12/19 09:24 Dose: 10 mg Documented by: Pantoprazole Sodium (Protonix Iv) 40 mg IVPUSH DAILY CHERI Last Admin: 11/12/19 09:24 Dose: 40 mg Documented by: Sodium Chloride ([place] -) 2 spray NS Q2H PRN PRN Reason: NASAL CONGESTION Gen: NAD at rest Heart: RRR Lung: decreased breath sounds at the bases Abd: soft, nontender Ext: no edema A/P Acute Submassive PE s/p catheter directed Thrombectomy/Thrombolysis Bilateral DVTs Lung Nodule Anemia - For IVC filter - continue anticoagulation - O2 as needed - monitor H/H - Outpatient follow up of lung nodule and age appropriate CA screening - DC planning Dr Sebastian
[2019-11-12 14:14] VITALS: BMI 31.4
[2019-11-12 14:19] VITALS: BP 130/79; PULSE 78; TEMP 98.6
--- NOTE | 2019-11-12 21:02 | DS ---
Physical Exam: SUBJECTIVE: Patient seen and examined bedside. In no acute distress. No acute events overnight. OBJECTIVE: Vital Signs Period Temp Pulse Resp BP Sys/Dowd Pulse Ox Last 24 Hr 98.4 F-98.7 F 66-78 15-18 121-150/63-97 92-98 PHYSICAL EXAM GENERAL: NAD. HEAD: NC/AT. EYES: sclera anicteric, conjunctiva clear and w/o pallor. ENT: oropharynx clear without exudates, moist mucous membranes. NECK: Trachea midline, full range of motion, supple. Right neck base with healing catheter puncture-site LUNGS: Breath sounds equal, clear to auscultation bilaterally, no wheezes, no crackles, no accessory muscle use. On NC 3L HEART: Regular rate and rhythm, S1, S2 without murmur, rub or gallop. ABDOMEN: Soft, nontender, nondistended, no guarding, no rebound. EXTREMITIES: 2+ pulses, warm, well-perfused, no edema. NEUROLOGICAL: Normal speech, LABS Laboratory Tests 11/05/19 11/05/19 11/05/19 14:20 14:26 14:26 WBC 11.7 H RBC 4.67 Hgb 14.7 Hct 44.0 MCV 94.1 MCH 31.4 MCHC 33.4 RDW 13.9 Plt Count 216 MPV 9.0 Absolute Neuts (auto) 8.4 H Neutrophils % 72.1 Lymphocytes % 19.3 Monocytes % 8.2 Eosinophils % 0.1 Basophils % 0.3 Nucleated RBC % 0 PT with INR 15.10 H INR 1.28 H PTT (Actin FS) 26.4 D-Dimer Protein S Antigen Free Protein S Sodium Potassium Chloride Carbon Dioxide Anion Gap BUN Creatinine Est GFR (CKD-EPI)AfAm Est GFR (CKD-EPI)NonAf Random Glucose Lactic Acid Calcium Phosphorus Magnesium Ferritin Total Bilirubin Direct Bilirubin AST ALT Alkaline Phosphatase LD Total Creatine Kinase Creatine Kinase Index CK-MB (CK-2) Troponin I B-Natriuretic Peptide Total Protein Albumin Stool Occult Blood COVID-19 (GARY) Not detected 11/05/19 11/05/19 11/05/19 14:26 14:26 14:26 WBC RBC Hgb Hct MCV MCH MCHC RDW Plt Count MPV Absolute Neuts (auto) Neutrophils % Lymphocytes % Monocytes % Eosinophils % Basophils % Nucleated RBC % PT with INR INR PTT (Actin FS) D-Dimer 70382 H Protein S Antigen Free Protein S Sodium 136 Potassium 4.0 Chloride 101 Carbon Dioxide 18 L Anion Gap 17 H BUN 24.4 H Creatinine 1.6 H Est GFR (CKD-EPI)AfAm 55.39 Est GFR (CKD-EPI)NonAf 47.79 Random Glucose 164 H Lactic Acid 4.5 H* Calcium 8.8 Phosphorus Magnesium Ferritin 238.0 Total Bilirubin 0.9 Direct Bilirubin 0.4 H AST 23 ALT 32 Alkaline Phosphatase 45 LD Total 375 H Creatine Kinase 216 Creatine Kinase Index 1.1 CK-MB (CK-2) 2.4 Troponin I 0.71 H* B-Natriuretic Peptide Total Protein 8.5 H Albumin 3.8 Stool Occult Blood COVID-19 (GARY) 11/05/19 11/05/19 11/05/19 14:26 17:11 18:00 WBC RBC Hgb Hct MCV MCH MCHC RDW Plt Count MPV Absolute Neuts (auto) Neutrophils % Lymphocytes % Monocytes % Eosinophils % Basophils % Nucleated RBC % PT with INR INR PTT (Actin FS) D-Dimer Protein S Antigen Free Protein S Sodium Potassium Chloride Carbon Dioxide Anion Gap BUN Creatinine Est GFR (CKD-EPI)AfAm Est GFR (CKD-EPI)NonAf Random Glucose Lactic Acid 1.9 Calcium Phosphorus Magnesium Ferritin Total Bilirubin Direct Bilirubin AST ALT Alkaline Phosphatase LD Total Creatine Kinase Creatine Kinase Index CK-MB (CK-2) Troponin I B-Natriuretic Peptide 5565.3 H Total Protein Albumin Stool Occult Blood Negative COVID-19 (GARY) 11/05/19 11/05/19 11/05/19 18:00 20:50 20:50 WBC RBC Hgb Hct MCV MCH MCHC RDW Plt Count MPV Absolute Neuts (auto) Neutrophils % Lymphocytes % Monocytes % Eosinophils % Basophils % Nucleated RBC % PT with INR INR PTT (Actin FS) D-Dimer Protein S Antigen Free Protein S Sodium Potassium Chloride Carbon Dioxide Anion Gap BUN Creatinine Est GFR (CKD-EPI)AfAm Est GFR (CKD-EPI)NonAf Random Glucose Lactic Acid 1.4 Calcium Phosphorus Magnesium Ferritin Total Bilirubin Direct Bilirubin AST ALT Alkaline Phosphatase LD Total Creatine Kinase 268 Creatine Kinase Index 0.6 CK-MB (CK-2) 1.75 Troponin I 0.68 H* 0.55 H B-Natriuretic Peptide Total Protein Albumin Stool Occult Blood COVID-19 (GARY) 11/05/19 11/05/19 11/06/19 20:50 21:30 05:55 WBC RBC Hgb Hct MCV MCH MCHC RDW Plt Count MPV Absolute Neuts (auto) Neutrophils % Lymphocytes % Monocytes % Eosinophils % Basophils % Nucleated RBC % PT with INR INR PTT (Actin FS) 99.9 H D-Dimer Protein S Antigen 89 Free Protein S 143 Sodium Potassium Chloride Carbon Dioxide Anion Gap BUN Creatinine Est GFR (CKD-EPI)AfAm Est GFR (CKD-EPI)NonAf Random Glucose Lactic Acid Calcium Phosphorus Magnesium Ferritin Total Bilirubin Direct Bilirubin AST ALT Alkaline Phosphatase LD Total Creatine Kinase 251 Creatine Kinase Index 0.7 CK-MB (CK-2) 1.9 Troponin I 0.42 H B-Natriuretic Peptide Total Protein Albumin Stool Occult Blood COVID-19 (GARY) 11/06/19 11/06/19 11/06/19 05:55 05:55 05:55 WBC 7.6 RBC 4.23 Hgb 13.3 Hct 39.3 MCV 93.0 MCH 31.5 MCHC 33.8 RDW 13.8 Plt Count 145 D MPV 8.8 Absolute Neuts (auto) 4.4 Neutrophils % 58.1 Lymphocytes % 31.3 D Monocytes % 9.4 Eosinophils % 0.7 D Basophils % 0.5 Nucleated RBC % 0 PT with INR INR PTT (Actin FS) D-Dimer Protein S Antigen Free Protein S Sodium 138 Potassium 4.0 Chloride 104 Carbon Dioxide 24 Anion Gap 10 BUN 22.9 H Creatinine 1.2 Est GFR (CKD-EPI)AfAm 78.43 Est GFR (CKD-EPI)NonAf 67.67 Random Glucose 118 H Lactic Acid Calcium 8.4 L Phosphorus 4.3 Magnesium 2.4 Ferritin Total Bilirubin 0.7 Direct Bilirubin AST 26 ALT 32 Alkaline Phosphatase 40 L LD Total Creatine Kinase Creatine Kinase Index CK-MB (CK-2) Troponin I 0.42 H B-Natriuretic Peptide Total Protein 7.4 Albumin 3.4 Stool Occult Blood COVID-19 (GARY) 11/06/19 11/06/19 11/06/19 08:40 16:10 22:00 WBC RBC Hgb Hct MCV MCH MCHC RDW Plt Count MPV Absolute Neuts (auto) Neutrophils % Lymphocytes % Monocytes % Eosinophils % Basophils % Nucleated RBC % PT with INR INR PTT (Actin FS) 50.4 H 43.9 H 51.5 H D-Dimer Protein S Antigen Free Protein S Sodium Potassium Chloride Carbon Dioxide Anion Gap BUN Creatinine Est GFR (CKD-EPI)AfAm Est GFR (CKD-EPI)NonAf Random Glucose Lactic Acid Calcium Phosphorus Magnesium Ferritin Total Bilirubin Direct Bilirubin AST ALT Alkaline Phosphatase LD Total Creatine Kinase Creatine Kinase Index CK-MB (CK-2) Troponin I B-Natriuretic Peptide Total Protein Albumin Stool Occult Blood COVID-19 (GARY) 11/07/19 11/07/19 11/07/19 05:55 05:55 05:55 WBC 7.2 RBC 4.30 Hgb 13.3 Hct 40.1 MCV 93.3 MCH 30.9 MCHC 33.1 RDW 13.6 Plt Count 156 MPV 9.2 Absolute Neuts (auto) Neutrophils % Lymphocytes % Monocytes % Eosinophils % Basophils % Nucleated RBC % PT with INR INR PTT (Actin FS) 27.2 D-Dimer Protein S Antigen Free Protein S Sodium 135 L Potassium 4.6 Chloride 100 Carbon Dioxide 28 Anion Gap 6 L BUN 18.6 H Creatinine 1.1 Est GFR (CKD-EPI)AfAm 87.13 Est GFR (CKD-EPI)NonAf 75.17 Random Glucose 97 Lactic Acid Calcium 8.5 Phosphorus 4.6 Magnesium 2.4 Ferritin Total Bilirubin 1.1 H Direct Bilirubin AST 28 ALT 33 Alkaline Phosphatase 41 L LD Total Creatine Kinase Creatine Kinase Index CK-MB (CK-2) Troponin I B-Natriuretic Peptide Total Protein 7.4 Albumin 3.3 L Stool Occult Blood COVID-19 (GARY) 11/07/19 11/08/19 11/08/19 18:25 00:10 06:15 WBC 5.6 RBC 3.90 L Hgb 12.1 Hct 35.8 MCV 91.9 MCH 31.0 MCHC 33.8 RDW 13.8 Plt Count 128 L MPV 9.5 Absolute Neuts (auto) Neutrophils % Lymphocytes % Monocytes % Eosinophils % Basophils % Nucleated RBC % PT with INR INR PTT (Actin FS) 56.4 H 46.3 H D-Dimer Protein S Antigen Free Protein S Sodium Potassium Chloride Carbon Dioxide Anion Gap BUN Creatinine Est GFR (CKD-EPI)AfAm Est GFR (CKD-EPI)NonAf Random Glucose Lactic Acid Calcium Phosphorus Magnesium Ferritin Total Bilirubin Direct Bilirubin AST ALT Alkaline Phosphatase LD Total Creatine Kinase Creatine Kinase Index CK-MB (CK-2) Troponin I B-Natriuretic Peptide Total Protein Albumin Stool Occult Blood COVID-19 (GARY) 11/08/19 11/08/19 11/08/19 06:15 06:15 13:50 WBC RBC Hgb Hct MCV MCH MCHC RDW Plt Count MPV Absolute Neuts (auto) Neutrophils % Lymphocytes % Monocytes % Eosinophils % Basophils % Nucleated RBC % PT with INR INR PTT (Actin FS) 43.6 H 68.6 H D-Dimer Protein S Antigen Free Protein S Sodium 136 Potassium 3.9 Chloride 103 Carbon Dioxide 22 Anion Gap 11 BUN 14.9 Creatinine 0.9 Est GFR (CKD-EPI)AfAm 111.05 Est GFR (CKD-EPI)NonAf 95.81 Random Glucose 96 Lactic Acid Calcium 8.0 L Phosphorus 3.8 Magnesium 2.3 Ferritin Total Bilirubin 1.0 Direct Bilirubin AST 24 ALT 32 Alkaline Phosphatase 41 L LD Total Creatine Kinase Creatine Kinase Index CK-MB (CK-2) Troponin I B-Natriuretic Peptide Total Protein 6.6 Albumin 2.9 L Stool Occult Blood COVID-19 (GARY) 11/08/19 11/09/19 11/09/19 20:33 03:15 09:32 WBC RBC Hgb Hct MCV MCH MCHC RDW Plt Count MPV Absolute Neuts (auto) Neutrophils % Lymphocytes % Monocytes % Eosinophils % Basophils % Nucleated RBC % PT with INR 15.20 H INR 1.28 H PTT (Actin FS) 71.9 H 68.9 H 65.7 H D-Dimer Protein S Antigen Free Protein S Sodium Potassium Chloride Carbon Dioxide Anion Gap BUN Creatinine Est GFR (CKD-EPI)AfAm Est GFR (CKD-EPI)NonAf Random Glucose Lactic Acid Calcium Phosphorus Magnesium Ferritin Total Bilirubin Direct Bilirubin AST ALT Alkaline Phosphatase LD Total Creatine Kinase Creatine Kinase Index CK-MB (CK-2) Troponin I B-Natriuretic Peptide Total Protein Albumin Stool Occult Blood COVID-19 (GARY) 11/10/19 11/10/19 11/11/19 06:44 06:44 06:40 WBC 4.3 RBC 3.71 L Hgb 11.6 L Hct 34.5 L MCV 93.0 MCH 31.3 MCHC 33.6 RDW 13.5 Plt Count 202 D MPV 8.7 Absolute Neuts (auto) 2.5 Neutrophils % 59.5 Lymphocytes % 28.6 Monocytes % 9.9 Eosinophils % 1.3 D Basophils % 0.7 Nucleated RBC % 0 PT with INR INR PTT (Actin FS) 29.2 29.8 D-Dimer Protein S Antigen Free Protein S Sodium Potassium Chloride Carbon Dioxide Anion Gap BUN Creatinine Est GFR (CKD-EPI)AfAm Est GFR (CKD-EPI)NonAf Random Glucose Lactic Acid Calcium Phosphorus Magnesium Ferritin Total Bilirubin Direct Bilirubin AST ALT Alkaline Phosphatase LD Total Creatine Kinase Creatine Kinase Index CK-MB (CK-2) Troponin I B-Natriuretic Peptide Total Protein Albumin Stool Occult Blood COVID-19 (GARY) IMAGING ECHO: left ventricle is nl, mild concentric left ventricular hypertrophy, EJF 65%, RIGHT VENTRICLE IS MODERATELY DILATED, RIGHT VENTRICLE SYSTOLIC FUNCTION IS MODERATELY REDUCED, TRACE MR, TRACE TR, RIGHT VENTRICULAR SYSTOLIC PRESSURE IS 41MMHG IS ELEVATED, TRACE AORTIC REGURG, TRACE DUPLEX Of LE: DVT bl popliteal veins CTA chest: Emboli in LEFT and RIGHT pulm artery, straddling bifurcation as well as upper and lower lobes branches WITH RIGHT heart strain CT abdomen and pelvis: right and left main pulmonary artery emboli again noted, small bl pleural effusions with bibasilar atelectasis. 2cm peripheral density right midlung field probably an infarction also seen on prior study,follow up recommended to r/o neoplasia, small fat containing inguinal hernia HOSPITAL COURSE: Patient presented to the ED with new onset SOB and was found to have an elevated D-Dimer and troponin. Patient was worked up for pulmonary embolism and CTA showed a submassive PE. Patient underwent a thrombectomy with double lumen cath placed by IR on 11/06. One cath was placed in each pulmonary artery for direct tPA drip. On 11/11 IR placed an IVC filter. The patient needs to follow up with IR within 3 months of discharge for filter removal. He was strongly advised to follow up with Heme/Onc for outpatient work for this unprovoked PE. He is being discharged on Eliquis. Date of Admission:11/05/19 Date of Discharge: 11/12/19 Minutes to complete discharge: 30 Discharge Summary Problems reviewed: Yes Reason For Visit: RESPIRATORY DISTRESS Condition: Stable - Instructions Diet, Activity, Other Instructions: You evaluated in the hospital for shortness of breath. Imaging was notable for large clots in the lung and both legs. You received medications to help reduce the size of the clots. You had a procedure to remove parts of the clots. You had another procedure to place a basket filter in your blood vessel. A oncologist was consulted to help evaluate the cause of the blood clots. No obvious cause was discovered. A mining machinery assembler was consulted due to the heart strain. MEDICATIONS - START taking Eliquis: --10mg twice a day for 4 additional days(11/12/2019 - 11/15/2019) then change your dosage --5mg twice a day(11/16/2019 onwards) Please follow up with physicians below: - Primary Care Physician: to discuss your recent hospitalization. Discuss getting another echocardiogram of your heart. --if you don't have a primary care physician, then please visit us at the [facility] - Oncologist(Antoine): to discuss your blood clots and when you are able to stop the Eliquis - Interventional Radiologist(Bernardo): to discuss when you can have the filter removed, he wants you to give him a call within 2 months period. -Follow with pulmonary within 2 week period then need follow up for follow upm CT of your chest within 2 months period. -Please folllow up with GI dr Ramires for colonoscopy to rule out any colon cancer' please follow up with print shop helper for further w/u and to find out the reason of your clot in your lungs. within a week (Dr Schultz or Tashi Alvarado) ADDITIONAL INSTRUCTIONS - avoid falls or activities that can lead to increased bleeding Please seek immediate medical care if you experience: - severe shortness of breath, trouble breathing, chest pain - bleeding issues that don't resolve - confusion, severe headaches Referrals: [facility] [place] [Provider Group] Brannon Chang MD [Staff Physician] - Maggie Castro MD [Staff Physician] - 2 Weeks Duncan Schultz MD [Staff Physician] - 1 Week Juan Alberto Sebastian MD [Staff Physician] - 2 Weeks Tashi Steiner MD [Staff Physician] - 1 Week Disposition: HOME - Home Medications Comprehensive Discharge Medication List: Ambulatory Orders Apixaban [Eliquis -] 5 mg PO BID #68 tablet 11/12/19 This patient is new to me today: Yes Date on this admission: 11/05/19 Emergency Visit: Yes ED Registration Date: 11/05/19 Care time: The patient presented to the Emergency Department on the above date and was hospitalized for further evaluation of their emergent condition. Critical Care patient: No - Discharge Referral Referred to [facility] No ATTENDING PHYSICIAN STATEMENT I saw and evaluated the patient. I reviewed the resident's note and discussed the case with the resident. I agree with the resident's findings and plan as documented. SUBJECTIVE: OBJECTIVE: ASSESSMENT AND PLAN:
== END 2019-11-12 18:17 | disposition home or self-care (01) | DRG 950 ==
LOC: JER 13:45 → JERBED 18:11 → JICU 19:58 → J4S 11-09 14:37
PROVIDERS: ADMIT Internal Medicine Pulmonary Disease; ATTEND Internal Medicine
PROC: 02CR3ZZ Extirpation of Matter from Left Pulmonary Artery, Percutaneous Approach (ICD-10-PCS; principal; 2019-11-06)
PROC: 02CQ3ZZ Extirpation of Matter from Right Pulmonary Artery, Percutaneous Approach (ICD-10-PCS; 2019-11-06)
PROC: B30TZZZ Plain Radiography of Left Pulmonary Artery (ICD-10-PCS; 2019-11-06)
PROC: B30SZZZ Plain Radiography of Right Pulmonary Artery (ICD-10-PCS; 2019-11-06)
PROC: 3E05317 Introduction of Other Thrombolytic into Peripheral Artery, Percutaneous Approach (ICD-10-PCS; 2019-11-06)
PROC: 3E05317 Introduction of Other Thrombolytic into Peripheral Artery, Percutaneous Approach (ICD-10-PCS; 2019-11-07)
PROC: B31TZZZ Fluoroscopy of Left Pulmonary Artery (ICD-10-PCS; 2019-11-07)
PROC: B31UZZZ Fluoroscopy of Pulmonary Trunk (ICD-10-PCS; 2019-11-07)
PROC: B31SZZZ Fluoroscopy of Right Pulmonary Artery (ICD-10-PCS; 2019-11-07)
PROC: 02CR3ZZ Extirpation of Matter from Left Pulmonary Artery, Percutaneous Approach (ICD-10-PCS; 2019-11-07)
PROC: 02CQ3ZZ Extirpation of Matter from Right Pulmonary Artery, Percutaneous Approach (ICD-10-PCS; 2019-11-07)
PROC: 06H03DZ Insertion of Intraluminal Device into Inferior Vena Cava, Percutaneous Approach (ICD-10-PCS; 2019-11-12)
DX: I26.99 Other pulmonary embolism without acute cor pulmonale (principal); I82.433 Acute embolism and thrombosis of popliteal vein, bilateral; R00.0 Tachycardia, unspecified; I10 Essential (primary) hypertension; N17.9 Acute kidney failure, unspecified; R05 Cough; R91.1 Solitary pulmonary nodule; D64.9 Anemia, unspecified; J90 Pleural effusion, not elsewhere classified; J98.11 Atelectasis; K40.90 Unilateral inguinal hernia, without obstruction or gangrene, not specified as recurrent; I51.89 Other ill-defined heart diseases
CPT/HCPCS: 36415; 37187; 37191; 37212; 71045-TC-FY; 71260-TC; 71275-TC; 74177-TC; 75743-TC-FY; 76000-TC-FY; 76937-TC; 80053; 81241; 82248; 82272; 82550; 82553; 82728; 83605; 83615; 83735; 83880; 84100; 84484; 85025; 85027; 85303; 85305; 85306; 85379; 85610; 85730; 87040; 93005; 93010; 93306-TC; 93970-TC; 99291; C1769; C1880; C1887; C1894; C9999; J1644; J2997; Q9967; U0003

== ENCOUNTER 2020-03-14 04:52 | Day surgery (SDC) | payer OTHER ==
--- OUTSIDE RECORDS SUMMARY | 2020-03-03 08:20 | XMS ---
:1965 Author Organization [facility] Support Name Relationship Address Phone UE Unavailable Unavailable Unavailable YUMIKO KAUFMAN [address] [facility] [place] [address] YUMIKO KAUFMAN Spouse [address] [facility] [facility] [place] [address] Re-disclosure Warning The records that you are about to access may contain information from federally- assisted alcohol or drug abuse programs. If such information is present, then the following federally mandated warning applies: This information has been disclosed to you from records protected by federal confidentiality rules (42 CFR part 2). The federal rules prohibit you from making any further disclosure of this information unless further disclosure is expressly permitted by the written consent of the person to whom it pertains or as otherwise permitted by 42 CFR part 2. A general authorization for the release of medical or other information is NOT sufficient for this purpose. The Federal rules restrict any use of the information to criminally investigate or prosecute any alcohol or drug abuse patient.The records that you are about to access may contain highly sensitive health information, the redisclosure of which is protected by Article 27-F of the [facility] Public Health law. If you continue you may haveaccess to information: Regarding HIV / AIDS; Provided by facilities licensed or operated by the [facility] Office of Mental Health; or Provided by the [facility] Office for People With Developmental Disabilities. If such information is present, then the following [facility] mandated warning applies: This information has been disclosed to you from confidential records which are protected by state law. State law prohibits you from making any further disclosure of this information without the specific written consent of the person to whom it pertains, or as otherwise permitted by law. Any unauthorized further disclosure in violation of state law may result in a fine or group home sentence or both. A general authorization for the release of medical or other information is NOT sufficient authorization for further disclosure. Insurance Providers Payer name Policy type Policy ID Covered Covered republican's Policy P tony / Coverage republican ID relationship to Goldstein Inf ormation type goldstein TODD [id number] 400 ESSENTIAL PLAN 1 2 Results ID Date Data Source [id number] 11/05/2019 02:20:00 PM EDT [facility] Name Value Range Interpretation Description Data Sup porting Code Source(s) Document(s ) SARS [facility] CORONAVIRUS 2 RNA This lab was ordered by [facility] and reported by [facility]. Procedure
[2020-03-13 13:48] VITALS: BMI 27.1
--- OUTSIDE RECORDS SUMMARY | 2020-03-14 04:56 | XMS ---
:1965 Author Organization [facility] Support Name Relationship Address Phone UE Unavailable Unavailable Unavailable YUMIKO KAUFMAN [address] [facility] [place] [address] YUMIKO KAUFMAN Spouse [address] [facility] [place] [address] Re-disclosure Warning The records that you are [...] is protected by Article 27-F of the [facility] Public Health law. If you continue you may haveaccess to information: Regarding HIV / AIDS; Provided by facilities licensed or operated by the [facility] Office of Mental Health; or Provided by the [facility] Office for People With Developmental Disabilities. If such information is present, then the following [facility] mandated warning applies: This information has been [...] name Policy type Policy ID Covered Covered alliance party's Policy P tony / Coverage alliance party ID relationship to Goldstein Inf ormation type goldstein TODD [id number] 400 ESSENTIAL PLAN 1&2 TODD [id number] 400 ESSENTIAL PLAN 1&2 Results ID Date Data Source [id number] 03/09/2020 11:55:00 AM EST [facility] Name Value Range Interpretation Description Data Sup porting Code Source(s) Document(s ) SARS [facility] coronavirus 2 RNA This lab was ordered by [facility] and reported by [facility]. ID Date Data Source [id number] 11/05/2019 02:20:00 PM EDT [facility] Name Value Range Interpretation Description Data Sup porting Code Source(s) Document(s ) SARS [facility] CORONAVIRUS 2 RNA This lab was ordered by [facility] and reported by [facility]. Procedure
[2020-03-14 11:32] VITALS: TEMP 98.2
[2020-03-14 13:44] VITALS: BP 124/80; PULSE 59
--- NOTE | 2020-03-17 11:51 | PATH ---
Surgical Pathology Report Patient Name: BEV RECINOS [facility]. Rec. #: [id number] /Age/Gender: 1965 (Age: 54) / M Account: [id number] Location: U-ENDOSCOPY Taken: 03/14/2020 Received: 03/14/2020 Reported: 03/17/2020 Physicians: Maggie Castro M.D. Specimen(s) Received A: GASTRIC ANTRUM B: RECTAL POLYP Clinical History Gastric and colon cancer screening Postoperative diagnosis: Gastritis, rectal polyp Final Diagnosis A. GASTRIC ANTRUM, BIOPSY: GASTRIC ANTRAL MUCOSA WITH SEVERE CHRONIC ACTIVE GASTRITIS AND FOCAL INTESTINAL METAPLASIA. NO DYSPLASIA IDENTIFIED. IMMUNOHISTOCHEMICAL STAIN FOR H. PYLORI IS POSITIVE (MANY). B. RECTAL POLYP, BIOPSY: HYPERPLASTIC POLYP. Positive and negative controls (internal if applicable) show appropriate results. Electronically Signed Sharmaine Noe M.D. Gross Description A. Received in formalin, labeled "biopsy gastric antrum" are 2 del castillo, irregular portions of soft tissue measuring 0.2 and 0.3 cm. in greatest dimension. The specimens are submitted in toto in one cassette. B. Received in formalin, labeled "biopsy rectal polyp" are 3 del castillo, irregular portions of soft tissue ranging from 0.3-0.4 cm. in greatest dimension. The specimens are submitted in toto in one cassette. 03/14/2020 [facility]03/14/2020
== END 2020-03-14 13:44 | disposition home or self-care (01) ==
LOC: JASU-ENDO 04:52
PROVIDERS: ATTEND Internal Medicine Gastroenterology
PROC: 0DB78ZX Excision of Stomach, Pylorus, Via Natural or Artificial Opening Endoscopic, Diagnostic (ICD-10-PCS; 2020-03-14)
PROC: 0DBP8ZX Excision of Rectum, Via Natural or Artificial Opening Endoscopic, Diagnostic (ICD-10-PCS; principal; 2020-03-14 11:00)
DX: Z12.11 Encounter for screening for malignant neoplasm of colon (principal); Z12.0 Encounter for screening for malignant neoplasm of stomach; K29.70 Gastritis, unspecified, without bleeding; K31.89 Other diseases of stomach and duodenum; K62.1 Rectal polyp; Z86.711 Personal history of pulmonary embolism; Z79.01 Long term (current) use of anticoagulants; Z95.828 Presence of other vascular implants and grafts; B96.81 Helicobacter pylori [H. pylori] as the cause of diseases classified elsewhere
CPT/HCPCS: 88305-TC; 88342-TC

== ENCOUNTER 2020-07-23 05:31 | Day surgery (SDC) | payer OTHER ==
[2020-07-22 17:44] VITALS: BMI 30.5
[2020-07-23 13:41] VITALS: PULSE 61
[2020-07-23 13:55] VITALS: BP 136/77; TEMP 97.8
== END 2020-07-23 14:00 | disposition home or self-care (01) ==
LOC: JRADIR 05:31
PROVIDERS: ATTEND Internal Medicine
PROC: 06PY3DZ Removal of Intraluminal Device from Lower Vein, Percutaneous Approach (ICD-10-PCS; principal; 2020-07-23)
DX: Z45.89 Encounter for adjustment and management of other implanted devices (principal); Z86.718 Personal history of other venous thrombosis and embolism; Z79.01 Long term (current) use of anticoagulants
CPT/HCPCS: 37193

== ENCOUNTER 2022-09-27 13:25 | Emergency (ER) | payer OTHER ==
[2022-09-27 13:35] VITALS: BMI 32.5
[2022-09-27] MEDS ORDERED: DIPHTH,PERTUSS(ACELL),TET 0.5 ML DISP.SYRIN IM ONE ×2 (13:52→14:02)
[2022-09-27] MEDS ORDERED: ceFAZolin 2 GRAM PREMIX BAG IVPB ONE (14:14)
[2022-09-27] MEDS ORDERED: CEFAZOLIN SODIUM 2 GM in DEXTROSE 5%-WATER 100 ML IVPB ONE (14:30)
[2022-09-27] MEDS ORDERED: CEFAZOLIN SODIUM 2 GM VIAL ONE (14:55)
[2022-09-27 20:36] VITALS: BP 133/78; PULSE 78; RESP 19; TEMP 98.6
== END 2022-09-27 22:48 | disposition short-term general hospital (02) ==
LOC: JERFT 13:25
PROC: 3E03329 Introduction of Other Anti-infective into Peripheral Vein, Percutaneous Approach (ICD-10-PCS; principal; 2022-09-27)
PROC: 3E0234Z Introduction of Serum, Toxoid and Vaccine into Muscle, Percutaneous Approach (ICD-10-PCS; 2022-09-27)
DX: S68.621A Partial traumatic transphalangeal amputation of left index finger, initial encounter (principal); W31.2XXA Contact with powered woodworking and forming machines, initial encounter; Z20.822 Contact with and (suspected) exposure to COVID-19
CPT/HCPCS: 0241U-QW; 73130-TC-LT-FY; 90471; 90715; 96365; 99285-25